=== PATIENT | male | born 1950 | race Caucasian/White ===

== ENCOUNTER 2021-11-13 11:16 | Inpatient (IN) | payer MEDICARE, OTHER, SELFPAY ==
[2021-11-13] VITALS (124 sets, daily range): BP systolic 81–170; BP diastolic 48–103; PULSE 40–86; RESP 16–34; TEMP 36.3–37; O2SAT 78–100; BMI 30.2
[2021-11-13] MEDS: midazolam 1 mg/mL INJ 2 mL 2 MG IVP ×2 (11:20→15:56)
--- NOTE | 2021-11-13 11:20 | XRR_ITS ---
PROCEDURE INFORMATION: Exam: XR Chest Exam date and time: 11/13/2021 11:33 AM Age: 71 years old Clinical indication: Device placement; Other: Ng and et placement; Additional info: Post code TECHNIQUE: Imaging protocol: Radiologic exam of the chest. Views: 1 view. COMPARISON: No relevant prior studies available. FINDINGS: Tubes, catheters and devices: NG tube extends into the subdiaphragmatic tissues the tip is not visible. Endotracheal tube is present the tip is 6.8 cm above the joel Lungs: Parenchymal densities are seen in the right upper lobe consistent with pneumonia. Low lung volumes seen. The lungs are otherwise clear Pleural spaces: Unremarkable. No pleural effusion. No pneumothorax. Heart/Mediastinum: Unremarkable. No cardiomegaly. Bones/joints: Unremarkable. XR/XR chest 1V portable [id number] IMPRESSION: 1. Right upper lobe pneumonia is present. 2. Endotracheal tube is above the joel. 3. NG tube is subdiaphragmatic
--- NOTE | 2021-11-13 11:20 | CTR_ITS ---
PROCEDURE INFORMATION: Exam: CT Head Without Contrast Exam date and time: 11/13/2021 11:59 AM Age: 71 years old Clinical indication: Other: Post code TECHNIQUE: Imaging protocol: Computed tomography of the head without contrast. Radiation optimization: All CT scans at this facility use at least one of these dose optimization techniques: automated exposure control; mA and/or kV adjustment per patient size (includes targeted exams where dose is matched to clinical indication); or iterative reconstruction. COMPARISON: No relevant prior studies available. RADIATION DOSE METRICS: Total DLP (mGy-cm): 1181.28 FINDINGS: Brain: Normal. No hemorrhage. Unremarkable white matter. No mass effect. Cerebral ventricles: No ventriculomegaly. Paranasal sinuses: Visualized sinuses are unremarkable. No fluid levels. Mastoid air cells: Visualized mastoid air cells are well aerated. Bones/joints: Unremarkable. No acute fracture. Soft tissues: Unremarkable. CT/CT head wo con* [id number] IMPRESSION: No acute intracranial abnormality.
[2021-11-13] MEDS: fentaNYL 50 mcg/mL INJ 2mL 100 MCG IVP (11:21)
--- NOTE | 2021-11-13 11:22 | ED_ITS ---
HPI - CPR General: Chief Complaint: Cardiac Arrest/CPR Stated Complaint: POST CODE Time Seen by Provider: 11/13/21 11:19 Limitations: altered mental status and physical limitation History of Present Illness: Mr. Tesfaye is a 71-year-old gentleman with unclea r past medical history presents to the emergency department post cardiac arrest. Patient was seen approximately 20 minutes prior to being found in cardiac arrest and CPR was initiated approximately 5 minutes after by first responders. Upon [facility] ambulance arrival patient was in PEA and then subsequently developed ventricular fibrillation. The patient had approximately 10 minutes of CPR prior to ROSC. He was intubated by EMS. He received 300 mg and then 150 mg of amiodarone. He received 3 x 1 mg doses of epinephrine and 3 separate push doses of epinephrine for hypotension. Additionally the patient appeared uncomfortable so he received 5 mg of Versed. Patient was not following commands however did have some eye movements and tongue movements. History is otherwise limited as the patient is intubated. Supplemental history provided by upon her arrival patient does have a history of liver cirrhosis and heart failure though had a hospitalization a number of years ago and really has not required medication treatment since. He has largely been at his baseline health though perhaps seemed a little more subdued this morning. Initial findings in the field: unresponsive, no respirations, no pulse and PEA Treatments prior to arrival: intubation, chest compressions, defibrillated shocks #, epinephrine mgs # and amiodarone Review of Systems General: Reports: ROS unobtainable due to endotracheal tube, ROS unobtainable due to medical condition and ROS unobtainable due to mental status [facility] ED PFSH: Medical History (Updated 11/13/21 @ 12:29 by Michael Gregorio MD) Family history unknown Medical history unknown Surgical History (Updated 11/13/21 @ 11:46 by Michael Gregorio MD) Surgical history unknown Physical Exam Const: GENERAL APPEARANCE: well developed, ill appearing and patient mechanically ventilated HENMT: COMMON NORMALS: normocephalic and atraumatic HEAD & SCALP: normocephalic and atraumatic OTHER: Mild amount of blood dried in the oropharynx/mouth Eye: COMMON NORMALS: conjunctivae normal CONJUNCTIVA: Yes conjunctivae normal SCLERA: sclerae normal OTHER: Pupils bilateral 2 mm nonreactive to light Neck/C-Spine: COMMON NORMALS: supple GENERAL: Yes trachea midline OTHER: C-collar in place Chest: OTHER: Chest wall deformity with ventilation likely consistent with rib fractures from CPR Resp: COMMON NORMALS: clear to auscultation bilaterally EFFORT & INSPECTION: Yes other AUSCULTATION: clear to auscultation bilaterally Cardio: COMMON NORMALS: regular rate and regular rhythm RATE: regular rate RHYTHM: regular rhythm GI: COMMON NORMALS: Soft to palpation PALPATION: Yes Soft to palpation and No Tenderness to palpation present (GI) Extremity: GENERAL: Yes normal exam except as noted and No edema Neuro: OTHER: Gag reflex appears intact, otherwise does not follow commands. Course ED course: - Patient was seen and evaluated by me at bedside - Patient placed on cardiac monitors, prehospital IV access present, additional IV access obtained - Initial evaluation notable for exam as above - Labs and xrays personally interpreted by me. EKG shows sinus rhythm with first-degree AV block and occasional PVC. Borderline interventricular conduction delay, nonspecific ST segment abnormalities. No STEMI. - Patient had abnormal movements, unclear if mild intermittent seizure type activity or simply bucking the vent. Versed and fentanyl bolus given. Propofol and fentanyl drip ordered. - Labs notable for leukocytosis, normal hemoglobin. No acute electrolyte derangement. Metabolic derangement likely secondary to lactic acidosis, creatinine elevated with unclear baseline. Mild transaminitis which may be secondary to liver cirrhosis or developing shock liver. Toxic ingestions negative. - ABG with metabolic acidosis 7.107/43.7/396. Plan to increase respiratory rate to 16 and repeat blood gas in 1 hour. Titrate down FiO2 for target SPO2 greater than 92% less than 100%. - Imaging notable for chest x-ray reviewed at bedside, ET tube approximately 6 cm from joel with satisfactory positioning. Lung sounds clear and equal bilaterally. - Upon serial reexamination after treatment the patient was similar - Based on patient history, evaluation, and testing as interpreted the most likely cause of the patient's condition is cardiac arrest of uncertain etiology. - The results of ED evaluation were discussed with the patient's family who was updated on patient condition including plan for admission due to requirement for level of care not available if discharged to prevent significant worsening/deterioration. - Admitting service was contacted and Dr Carrillo with the hospitalist service agreed to admit the patient. After discussion with hospitalist CTA ordered for evaluation of PE. I have also discussed the case with both general cardiology and interventional cardiology. Echocardiogram ordered. -Patient's heart rate and blood pressure log downtrending, given sinus nature of rhythm I will attempt 0.5 mg of atropine and observe closely for consideration of initiation of vasopressors. - Admitted to ICU in critical condition with guarded prognosis. Note: Click bubbles or prepopulated cintron in note writing are used for assistance with data collection and billing and are inherently more limited than narrative and other text portions of this note. Please use narrative for additional clinical history and defer to narrative/free test for any case of contradictory information. If information appears in only free text or click bubble it should be considered present or absent as reported. Please contact note greeting card writer for clarifications of clinical information or contradictory information. MDM is a brief summary, contradictory or erroneous seeming information should be clarified and full note should be reviewed. Vital Signs: Vital signs: Vital Signs Temperature 97.9 F 11/13/21 11:43 Pulse Rate 46 L 11/13/21 12:25 Respiratory Rate 16 11/13/21 12:25 Blood Pressure 102/59 11/13/21 12:25 Pulse Oximetry 99 11/13/21 12:25 Oxygen Delivery Me thod 11/13/21 11:43 Fraction of Inspir ed Oxygen 100 11/13/21 11:25 MDM - Cardiac Arrest/CPR Medical Decision Making 71-year-old gentleman with remote history of heart failure and liver cirrhosis not currently on medication presenting to the ER in cardiac arrest. Unwitnessed cardiac arrest with last known normal 20 minutes prior to CPR initiation though thinks it might be shorter amount of time. Initially PEA followed by VF, ROSC obtained in the field and patient intubated by EMS. Etiology of cardiac arrest somewhat uncertain. Admitted for further management. Medical Records I reviewed the patient's medical records. Lab Data I reviewed the patient's lab results. : 11/13/21 11:26 11/13/21 11:26 Radiology Impressions Chest X-Ray 11/13/21 11:20 IMPRESSION: 1. Right upper lobe pneumonia is present. 2. Endotracheal tube is above the joel. 3. NG tube is subdiaphragmatic Head CT 11/13/21 11:20 IMPRESSION: No acute intracranial abnormality. Laboratory Results WBC 12.3 10^3/uL (4.0-10.0) H 11/13/21 11:26 RBC 4.20 10^6/uL (4.1-5.3) 11/13/21 11: Hgb 13.9 g/dL (11.7-16.6) 11/13/21 11: Hct 41.4 % (42.0-52.0) L 11/13/21 11: MCV 98.6 fl (80-94) H 11/13/21 11:26 MCH 33.1 pg (28.0-34.0) 11/13/21 11: MCHC 33.6 g/dL (30.0-36.0) 11/13/21 11: RDW 13.2 % (12.1-15.1) 11/13/21 11:26 Plt Count 130 10^3/cmm (130-400) 11/13/21 11: MPV 11.7 fL (7.4-10.4) H 11/13/21 11:26 Neut % (Auto) 64.4 % 11/13/21 11:26 Lymph % (Auto) 22.8 % 11/13/21 11:26 [place] % (Auto) 5.9 % 11/13/21 11:26 Eos % (Auto) 1.4 % 11/13/21 11: Baso % (Auto) 0.5 % 11/13/21 11: Neut # (Auto) 7.92 10^3/uL (1.8-7.7) H 11/13/21 11:26 Lymph # (Auto) 2.8 10^3/uL (0.8-4.8) 11/13/21 11:26 [place] # (Auto) 0.7 10^3/uL (0.2-0.9) 11/13/21 11:26 Eos # (Auto) 0.2 10^3/uL (0.0-0.8) 11/13/21 11: Baso # (Auto) 0.1 10^3/uL (0.0-0.1) 11/13/21 11: Nucleated RBC % (auto) 0.5 % 11/13/21 11: Nucleated RBCs # 0.1 /100WBC 11/13/21 11:26 Specimen Type Arterial 11/13/21 12:35 Sample Site Radial, right 11/13/21 12:35 ABG pH 7.22 (7.35-7.45) L 11/13/21 12:35 ABG pCO2 42.3 mmHg (35-45) 11/13/21 12:35 ABG pO2 162.0 mmHg (80.0-100.0) H 11/13/21 12:35 ABG HCO3 17.4 mmol/L (22-26) L 11/13/21 12:35 ABG Base Excess -9.9 mmol/L (-2.0-2.0) L 11/13/21 12:35 Dylan Test Pos 11/13/21 12:35 Hematocrit 42.6 % (42-52) 11/13/21 12:35 O2 Delivery Device Vent 11/13/21 12:35 FiO2 80.0 % 11/13/21 12:35 Tidal Volume 0.50 11/13/21 12:35 PEEP 8.0 cmH20 11/13/21 12:35 Raw Hide Trimmer ID Hinja 11/13/21 12:35 Sodium 138 mmol/L (136-145) 11/13/21 11:26 Potassium 4.5 mmol/L (3.5-5.1) 11/13/21 11:26 Chloride 103 mmol/L (98-107) 11/13/21 11:26 Carbon Dioxide 13 mmol/L (22-29) L 11/13/21 11:26 Anion Gap 26.5 (5-19) H 11/13/21 11:26 BUN 26 mg/dL (8-23) H 11/13/21 11:26 Creatinine 1.4 mg/dL (0.7-1.2) H 11/13/21 11:26 GFR Calculation Not Reportable 11/13/21 11:26 Glucose 282 mg/dL (65-115) H 11/13/21 11:26 POC Glucose 247 mg/dL (70-110) H 11/13/21 11:29 Calculated Osmolality 301 mOsm/kg (285-295) H 11/13/21 11:26 Lactic Acid 7.8 mmol/L (0.5-2.2) H* 11/13/21 11:26 Calcium 8.1 mg/dL (8.5-10.5) L 11/13/21 11:26 Magnesium 2.1 mg/dL (1.7-2.3) 11/13/21 11:26 Total Bilirubin 0.6 mg/dL (0.15-1.2) 11/13/21 11:26 AST 63 U/L (0-40) H 11/13/21 11:26 ALT 48 U/L (0-41) H 11/13/21 11:26 Alkaline Phosphatase 91 U/L (40-130) 11/13/21 11:26 Troponin T Baseline 145 ng/L (0-15) H* 11/13/21 11:26 NT-Pro-B Natriuret Pep 2643 pg/mL (0-125) H 11/13/21 11:26 Total Protein 5.1 g/dL (6.6-8.7) L 11/13/21 11:26 Albumin 3.5 g/dL (3.5-5.2) 11/13/21 11:26 Globulin 1.6 g/dL (1.3-4.6) 11/13/21 11:26 TSH 7.76 uIU/mL (0.27-4.20) H 11/13/21 11:26 Free T4 0.79 ng/dL (0.82-1.77) L 11/13/21 11:26 Salicylates < 0.3 mg/dL (3-10) L 11/13/21 11:26 Acetaminophen < 5.0 ug/mL (10-30) L 11/13/21 11:26 Ethyl Alcohol < 10 mg/dL (0-10) 11/13/21 11:26 Critical Care Time Critical Care Time: Critical Care Time: Yes Total Critical Care Time: 60 Attestation: The high probability of a clinically significant, sudden or life threatening deterioration of the patient's cardiovascular, metabolic, and neuro system(s) required my full and direct attention, intervention and personal management. The critical care time is as shown. This time is in addition to time spent performing any reported procedures but includes the following: [x] Data and vital sign review and interpretation [x] Patient assessment, examination and intervention [x] Documentation [x] Medication orders and management Discharge Plan Discharge Patient Disposition: Admitted As Inpatient Clinical Impression: Cardiac arrest, Acute alteration in mental status, Leukocytosis, Acute non-ST elevation myocardial infarction (NSTEMI), Metabolic acidosis, Abnormal transaminases, Creatinine elevation, Elevated brain natriuretic peptide (BNP) level, Elevated TSH, Acidosis, lactic Condition: Critical Coding Level of Care Code ED Grape Pruner for Chg Fwd Exam Comprehensive
--- NOTE | 2021-11-13 11:25 | ECG_ITS ---
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 Measurements Intervals [place] Rate: 64 P: AR: QRS: -48 QRSD: 133 T: 37 QT: 451 QTc: 467 Interpretive Statements ATRIAL FIBRILLATION WITH ABERRANT CONDUCTION OR VENTRICULAR PREMATURE COMPLEXES INTRAVENTRICULAR CONDUCTION DELAY [130+ ms QRS DURATION] ARTIFACT No previous ECG available for comparison Electronically Signed On 11-16-2021 7:24:39 CDT by Jami Stanford M.D. [email or web address]/[id number] f
[2021-11-13 11:30] LABS: ABG PCO2 43.7 mmHg (35-45); Alveolar-Arterial Oxygen Gradi 33.1 mmHg (5-10); Base Excess ABG -15.4 mmol/L (-2.0-2.0); Blood Gas Allen Test Pos; Blood Gas Sample Site Radial, right; Blood Gas Sample Type Arterial; Carboxyhemoglobin 1.6 %THgb (0.4-20.1); HCO3 ABG 13.8 mmol/L (22-26); HGB O2 Sat 98.1 % (95-100); Ionized Calcium Level - ABG 1.1 mmol/L (1.1-1.4); Methemoglobin 0.7 % (0.4-1.5); Oxygen Device VENT; Oxygen Saturation ABG > 100.0; Potassium Level - ABG 4.3 mmol/L (3.5-5.0); Total Hemoglobin 14.4 g/dL (14-18)
[2021-11-13 11:32] LABS: Glucose Point of Care 247 mg/dL (70-110)
[2021-11-13 11:37] LABS: Basophils # 0.1 10^3/uL (0.0-0.1); Basophils % 0.5 %; Eosinophils # 0.2 10^3/uL (0.0-0.8); Eosinophils % 1.4 %; Hematocrit 41.4 % (42.0-52.0); Hemoglobin 13.9 g/dL (11.7-16.6); Lymphocytes # 2.8 10^3/uL (0.8-4.8); Lymphocytes % 22.8 %; Mean Corpuscular HGB Conc 33.6 g/dL (30.0-36.0); Mean Corpuscular Hemoglobin 33.1 pg (28.0-34.0); Mean Corpuscular Volume 98.6 fl (80-94); Mean Platelet Volume 11.7 fL (7.4-10.4); Monocytes # 0.7 10^3/uL (0.2-0.9); Monocytes % 5.9 %; Neutrophils # 7.92 10^3/uL (1.8-7.7); Neutrophils % 64.4 %; Nucleated Red Blood Cells # 0.1 /100WBC; Nucleated Red Blood Cells % 0.5 %; Platelet Count 130 10^3/cmm (130-400); Red Cell Distribution Width 13.2 % (12.1-15.1); White Blood Count 12.3 10^3/uL (4.0-10.0)
[2021-11-13] MEDS: propofol 1,000 MG/100 ML INJ 25.58 MG IV ×2 (11:40→19:33)
--- NOTE | 2021-11-13 11:46 | ECG_ITS ---
[facility] Test Date: 2021-11-13 Pat Name: Lm Tesfaye Department: Room: Gender: Male Rcp: : 1950 Requested By: Michael Gregorio Order Number: [id number] Liz MD: Jami Stanford M.D. Measurements Intervals [place] Rate: 66 P: 68 DE: 281 QRS: -18 QRSD: 130 T: 30 QT: 447 QTc: 471 Interpretive Statements SINUS RHYTHM WITH FIRST DEGREE AV BLOCK WITH OCCASIONAL VENTRICULAR PREMATURE COMPLEXES MODERATE INTRAVENTRICULAR CONDUCTION DELAY PROLONGED QT INTERVAL Compared to ECG 11/13/2021 11:25:07 First degree AV block now present Prolonged QT interval now present Atrial fibrillation no longer present Ventricular premature complex(es) no longer present Aberrant conduction of supraventricular beat(s) no longer present Electronically Signed On 11-15-2021 8:12:40 CDT by Jami Stanford M.D. [email or web address]/[id number] f
[2021-11-13] MEDS: sodium chloride 0.9% 1,000 ML 150 ML IV (11:50)
[2021-11-13 11:59] LABS: Alanine Aminotransferase 48 U/L (0-41); Albumin Level 3.5 g/dL (3.5-5.2); Alkaline Phosphatase 91 U/L (40-130); Blood Urea Nitrogen 26 mg/dL (8-23); Calcium 8.1 mg/dL (8.5-10.5); Carbon Dioxide 13 mmol/L (22-29); Chloride 103 mmol/L (98-107); Globulin 1.6 g/dL (1.3-4.6); Glucose 282 mg/dL (65-115); Magnesium 2.1 mg/dL (1.7-2.3); Osmolality Calculated 301 mOsm/kg (285-295); Sodium 138 mmol/L (136-145); Total Bilirubin 0.6 mg/dL (0.15-1.2); Total Protein 5.1 g/dL (6.6-8.7)
[2021-11-13 12:00] LABS: Acetaminophen < 5.0 ug/mL (10-30); Anion Gap 26.5 (5-19); Aspartate Amino Transferase 63 U/L (0-40); Potassium 4.5 mmol/L (3.5-5.1); Salicylate < 0.3 mg/dL (3-10)
[2021-11-13 12:03] LABS: Troponin(5th) Baseline 145 ng/L (0-15)
[2021-11-13 12:08] LABS: Alcohol Level < 10 mg/dL (0-10); NT Pro B Type Natriuretic Pept 2643 pg/mL (0-125); Thyroid Stimulating Hormone 7.76 uIU/mL (0.27-4.20)
[2021-11-13 12:16] LABS: Lactic Sepsis W/Reflex 7.8 mmol/L (0.5-2.2)
--- NOTE | 2021-11-13 12:32 | CTR_ITS ---
PROCEDURE INFORMATION: Exam: CTA Chest With Contrast Exam date and time: 11/13/2021 1:57 PM Age: 71 years old Clinical indication: Abdominal pain; Generalized; Chest pressure; Additional info: Post code, abnormal chest xray TECHNIQUE: Imaging protocol: Computed tomographic angiography of the chest with contrast. 3D rendering (Not supervised by radiologist): MIP and/or 3D reconstructed images were created by the technologist. Radiation optimization: All CT scans at this facility use at least one of these dose optimization techniques: automated exposure control; mA and/or kV adjustment per patient size (includes targeted exams where dose is matched to clinical indication); or iterative reconstruction. Contrast material: OMNI 350; Contrast volume: 95 ml; Contrast route: INTRAVENOUS (IV); COMPARISON: CR (CHEST, ) 11/13/2021 11:33 AM RADIATION DOSE METRICS: Total DLP (mGy-cm): 1606.86 FINDINGS: Pulmonary arteries: Normal. No pulmonary emboli. Aorta: Unremarkable. No aortic aneurysm. No aortic dissection. Lungs: Parenchymal consolidations are present in the bilateral upper lobes and in the bilateral posterior lower lobes. These findings may represent pneumonia Pleural spaces: Unremarkable. No pneumothorax. No pleural effusion. Heart: Negative for right heart strain. Heavy coronary artery calcifications. No cardiomegaly. No pericardial effusion. Lymph nodes: Unremarkable. No enlarged lymph nodes. Bones/joints: Unremarkable. No acute fracture. Soft tissues: Unremarkable. Endotracheal tube and NG tube is in place. PROCEDURE INFORMATION: Exam: CT Abdomen And Pelvis With Contrast Exam date and time: 11/13/2021 1:57 PM Age: 71 years old Clinical indication: Abdominal pain; Generalized; Chest pressure; Additional info: Post code, abnormal chest xray TECHNIQUE: Imaging protocol: Computed tomography of the abdomen and pelvis with contrast. Radiation optimization: All CT scans at this facility use at least one of these dose optimization techniques: automated exposure control; mA and/or kV adjustment per patient size (includes targeted exams where dose is matched to clinical indication); or iterative reconstruction. Contrast material: OMNI 350; Contrast volume: 95 ml; Contrast route: INTRAVENOUS (IV); COMPARISON: CR (CHEST, ) 11/13/2021 11:33 AM RADIATION DOSE METRICS: Total DLP (mGy-cm): 1606.86 FINDINGS: Liver: Normal. No mass. Gallbladder and bile ducts: There is a calcified stone No ductal dilation. Pancreas: Normal. No ductal dilation. Spleen: Normal. No splenomegaly. Adrenal glands: Normal. No mass. Kidneys and ureters: Contrast is present in the right upper kidney No hydronephrosis. Stomach and bowel: Sigmoid colon diverticulosis No obstruction. No mucosal thickening. Appendix: No evidence of appendicitis. Intraperitoneal space: Unremarkable. No free air. No significant fluid collection. Vasculature: Unremarkable. No abdominal aortic aneurysm. Lymph nodes: Unremarkable. No enlarged lymph nodes. Urinary bladder: Unremarkable as visualized. Reproductive: Unremarkable as visualized. Bones/joints: Generalized osteopenia arthritis in osteopenia seen. A Schmorl's node is present inferior endplate of the L3 vertebral body. There is no evidence of spondylolisthesis. In No acute fracture. Soft tissues: NG tube extends into the stomach CT/CT angio chest w abd pel w con IMPRESSION: 1. Negative for pulmonary embolism. 2. Bilateral pneumonia. 3. Endotracheal tube and NG tube is present 4. Negative for right heart strain IMPRESSION: No acute findings. Schmorl's node inferior endplate L3. NG tube is in the stomach or remote bone There is osteopenia and osteoarthritis of the spine
[2021-11-13 12:36] LABS: ABG PCO2 42.3 mmHg (35-45); ABG PH Result 7.22 (7.35-7.45); Arterial Blood Gas Hematocrit 42.6 % (42-52); Base Excess ABG -9.9 mmol/L (-2.0-2.0); Blood Gas Allen Test Pos; Blood Gas Sample Site Radial, right; Blood Gas Sample Type Arterial; HCO3 ABG 17.4 mmol/L (22-26); Oxygen Device VENT
--- NOTE | 2021-11-13 12:41 | USCV_ITS ---
Lm Tesfaye Age: 71 Gender: M : 1950 Exam Date: 11/13/2021 14:36 Ordering Phys: Michael Gregorio MD Technologist: Kathi Campbell Exam Location: [facility] [place] Indication: Post Code on Vent with Temp Pacer pads BP: 96 / 51 HR: 68 Rhythm: Sinus Technical Quality: Adequate MEASUREMENTS (Male / Female) Normal Values 2D ECHO LV Diastolic Diameter PLAX 5.4 cm 4.2 - 5.9 / 3.9 - 5.3 cm LV Systolic Diameter PLAX 3.2 cm LV Chamber Size 4.3 cm IVS Diastolic Thickness 0.9 cm 0.6 - 1.0 / 0.6 - 0.9 cm IVS Systolic Thickness 1.5 cm LVPW Diastolic Thickness 1.0 cm 0.6 - 1.0 / 0.6 - 0.9 cm LVPW Systolic Thickness 1.5 cm RV Chamber Size 4.2 cm LVOT Diameter 2.0 cm LV Ejection Fraction 2D Teich 70.8 % LV Ejection Fraction MOD 2C 64.8 % LV Ejection Fraction 2C AL 65.6 % LA Diameter 4.0 cm LA Width 3.9 cm LA Height 5.3 cm RA Width 4.6 cm RA Height 4.8 cm Aorta at Sinotubular Diameter 3.8 cm IVC Diameter 2.6 cm M-MODE Aortic Annulus Diameter 3.0 cm LA Ao Ratio MM 1.6 MV E Point Septal Separation 0.5 cm DOPPLER AV Peak Velocity 116.0 cm/s LVOT Peak Velocity 69.3 cm/s AV Area Cont Eq vti 2.0 cm squared AV Area Cont Eq pk 1.9 cm squared MV Area PHT 4.6 cm squared Mitral E to A Ratio 2.9 MV E' Velocity 51.0 cm/s Mitral E to MV E' Ratio 8.5 Mitral E to LV E' Lateral Ratio 8.8 Mitral E to LV E' Septal Ratio 8.2 TR Peak Velocity 164.9 cm/s TR Peak Gradient 10.9 mmHg TR Mean Velocity 105.5 cm/s TR Mean Gradient 5.4 mmHg TR Velocity Time Integral 42.2 cm TV Peak E Velocity 73.0 cm/s Right Atrial Pressure 15.0 mmHg Pulmonary Artery Systolic Pressu 25.9 mmHg PV Peak Velocity 55.0 cm/s RV Acceleration Time 0.1 s RV Ejection Time 0.3 s RV AcT/ET 0.3 FINDINGS Left Ventricle Normal left ventricular cavity size and systolic function. Increased left ventricular wall thickness. Left ventricular ejection fraction is estimated at 60 %. No diagnostic regional wall motion abnormality. Abnormal diastolic function. Right Ventricle Normal right ventricular size and systolic function. Right ventricular systolic pressure 25.9 mmHg. Right Atrium Mildly increased right atrial size. Left Atrium Moderately increased left atrial size. Mitral Valve Mild mitral annular calcification. Thickened mitral valve. No mitral valve stenosis. Moderate mitral valve regurgitation. Aortic Valve Mildly thickened trileaflet aortic valve. No aortic valve stenosis. No aortic valve regurgitation. Tricuspid Valve Structurally normal tricuspid valve. Mild tricuspid valve regurgitation. Pulmonic Valve Structurally normal pulmonic valve. Pericardium No pericardial effusion. Aorta Normal size aortic root and proximal ascending aorta. IVC Normal sized inferior vena cava. CONCLUSIONS 1. Normal left ventricular cavity size and systolic function. Increased left ventricular wall thickness. Left ventricular ejection fraction is estimated at 60 %. No diagnostic regional wall motion abnormality. Abnormal diastolic function. 2. Normal right ventricular size and systolic function 3. Moderately increased left atrial size. 4. Normal pulmonary artery pressure with pressure estimated at 26 mm Hg. 5. No prior similar studies to compare. Jami Stanford MD (Electronically Signed) Final Date: 13 November 2021 17:07 S
[2021-11-13 12:45] LABS: Free T4 Free Thyroxine 0.79 ng/dL (0.82-1.77)
[2021-11-13] MEDS: atropine 0.1 mg/mL Syr 10 mL 0.5 MG IVP (12:45)
[2021-11-13 12:47] LABS: Reflex Lactate Order REFLEX LACTIC ORDERD
--- NOTE | 2021-11-13 12:51 | PC.NURSE ---
Patients has been brought back to the room. Has answered all questions that she may have.
[2021-11-13] MEDS: sodium chloride 0.9% 1,000 ML 999 ML IV (12:57)
--- NOTE | 2021-11-13 13:02 | P.CONIM_ITS ---
Providers/Reason For Consult Consulting Physician/Specialty*: Dr. Stanford, Cardiology Reason for Consult*: PEA arrest History of Present Illness History of Present Illness Lm Tesfaye is a 71 year old male with PMHx of CHF, ?liver cirrhosis, h/o paracentesis in 2009 and former alcohol abuse. He does not usually sees a physician or take any prescription medications. He moved to the area in Dec, 2020 from [place]. History obtained from chart and patient's . Patient was apparently doing well. He was a little quiet this morning per . He was on gator at his farm for about 30 minutes. Per she had checked on about 5- 10 min prior and then she heard Gator running and found him slumped over. EMS arrived within 5 minutes and CPR was initiated. Patient was in PEA and then benites bsequently developed ventricular fibrillation.? The patient had approximately 10 minutes of CPR prior to ROSC.? He was intubated by EMS.? He received 300 mg and then 150 mg of amiodarone.? He received 3 x 1 mg doses of epinephrine and 3 separate push doses of epinephrine for hypotension. He received 5 mg of Versed.? Patient was not following commands however did have some eye movements and tongue movements. At the roxi of evaluation, he is on versed and fentanyl gtt. he also received atropine for bradycardia. EKG showed sinus rhythm with first degree AV block with occasional PVC's. IVCD. Minimal non specific ST depression. QT prolongation.? Review of Systems General: Reports: ROS unobtainable due to endotracheal tube, ROS unobtainable due to medical condition and ROS unobtainable due to mental status Medications/Allergies Home Medications Medication Instructions Recorded Confirmed Last Taken Type Cinsulin 1 cap PO DAILY 11/13/21 11/13/21 11/12/21 History ascorbic acid (vitamin C) 500 mg 500 mg PO DAILY 11/13/21 11/13/21 11/12/21 History tablet (Vitamin C) cholecalciferol (vitamin D3) 25 25 mcg PO BID 11/13/21 11/13/21 11/12/21 History mcg (1,000 unit) capsule (Vitamin D3) cranberry 400 mg capsule 400 mg PO DAILY 11/13/21 11/13/21 11/12/21 History garlic 300 mg capsule 300 mg PO DAILY 0811/13/21 11/12/21 History glucosamine sulf dipot 1 cap PO DAILY 11/13/21 11/13/21 11/12/21 History chlr,msm,chond 550 mg-C 30 mg-seb 1 mg capsule (Glucosamine Chondroitin) grape seed extract 50 mg capsule 50 mg PO DAILY 11/13/21 11/13/21 11/12/21 History (Grape Seed) ibuprofen 200 mg capsule 600 mg PO TID PRN Pain 11/13/21 11/13/21 Unknown History milk thistle 150 mg capsule 150 mg PO DAILY 11/13/21 11/13/21 11/12/21 History multivitamin 1 tab PO DAILY 11/13/21 11/13/21 11/12/21 History turmeric 400 mg capsule 400 mg PO BID 11/13/21 11/13/21 11/12/21 History vitamin B complex 1 cap PO DAILY 11/13/21 11/13/21 11/12/21 History Allergies Allergy/AdvReac Type Severity Reaction Status Date / Time No Known Allergies Allergy Verified 11/13/21 12:27 Current Medications Generic Name Dose Route Start Last Admin Trade Name Freq PRN Reason Stop Dose Admin Propofol 1,000 mg in 100 mls @ 0 mls/hr 11/13/21 11:30 11/13/21 12:56 Diprivan IV 23.45 mcg/kg/min .Q0M JOSE F 15 mls/hr Titration Protocol Per Protocol Fentanyl 2,500 mcg/ Sodium 250 mls @ 0 mls/hr 11/13/21 11:30 11/13/21 11:40 Chloride IV 5 mcg/hr .Q0M JOSE F 0.5 mls/hr Administration Protocol Per Protocol Sodium Chloride 1,000 mls @ 150 mls/hr 11/13/21 12:15 11/13/21 11:50 Sodium Chloride 0.9% IV 150 mls/hr .Q6H40M JOSE F Administration Sodium Chloride 1,000 mls @ 999 mls/hr 11/13/21 12:54 11/13/21 12:57 Sodium Chloride 0.9% IV 11/13/21 13:54 999 mls/hr .Q1H1M ONE Administration PFSH Acute PFSH: Medical History Family history unknown Medical history unknown Surgical History Surgical history unknown Vitals/I&O/Wt Last Vital Signs Temp 97.9 F 11/13/21 11:43 Pulse 65 11/13/21 12:50 Resp 16 11/13/21 12:50 BP 81/50 11/13/21 12:50 Pulse Ox 99 11/13/21 12:40 O2 Del Method 11/13/21 11:43 FiO2 100 11/13/21 11:25 11/12/21 11/13/21 11/13/21 22:59 06:59 14:59 Intake Total 30.951 / 30.951 Balance 30.951 / 30.951 Weight last 48 hrs Weight 235 lb Physical Exam Narrative: GENERAL: obese man intubated and sedated HEENT: No pallor or icterus. NECK: No carotid bruit. CARDIOVASCULAR SYSTEM: S1-S2 regular. No murmur or gallops. RESPIRATORY SYSTEM: coarse b/l breath sounds. No wheezes rhonchi or rubs heard. ABDOMEN: Soft, nontender and nondistended. Normal bowel sounds present. EXTREMITIES: No cyanosis or edema. CREATIVE COORDINATOR: Patient is intubated and sedated Urinary Catheter Management: Phan: Cath Placed During This Visit: yes Urinary Catheter Date of Insertion: 11/13/21 Urinary Catheter Time of Insertion: 12:00 Data : 11/13/21 11:26 11/13/21 11:26 Micro: Microbiology 11/13/21 12:16 Blood Culture - Preliminary Blood SPECIMEN COLLECTED 11/13/21 12:11 Blood Culture - Preliminary Blood SPECIMEN COLLECTED A&P Assessment and plan (1) Cardiac arrest: PEA arrest; downtime ~15-20 min -CTA chest pending -GCS < 6 on arrival; therapeutic hypothermia is recommended for 48 hours. -EKG with no ST elevation -No arrhythmia's since arrival. recieved amiodarone 450 mg IV total. recommend starting on amiodarone gtt with any recurrence of arrhythmia. Status: Acute (2) Acute non-ST elevation myocardial infarction (NSTEMI): Troponin T 145-> 435 -recommend starting on therapeutic anticoagulation with heparin -plan for echo -decision for C based on clinical progression. Status: Acute (3) Abnormal transaminases: Status: Acute (4) Creatinine elevation: Status: Acute Plan Elevated lactate Metabolic acidosis Thank you for allowing me to participate in patient's care. Please feel free to call with questions or concerns. Consult Attestations Time Spent in Patient Care: Greater than 35 minutes Coding Level of Care Code Acute Restaurant Team Member for Leslie Donovan Diagnoses Cardiac arrest I46.9 Acute non-ST elevation myocardial infarction (NSTEMI) I21.4 Abnormal transaminases R74.8 Creatinine elevation R79.89
[2021-11-13] MEDS: iohexol 350 mg/mL 100 mL Btl IV (14:03)
[2021-11-13 14:31] LABS: ABG PH Result 7.11 (7.35-7.45)
[2021-11-13 14:44] LABS: Urine Appearance Cloudy (CLEAR); Urine Color Yellow (Yellow)
[2021-11-13 14:45] LABS: Add Urine Microscopic? YES; Bilirubin Urine Neg (Negative); Blood Urine 3+ (Negative); Glucose Urine UA Norm (Normal); Ketones Urine 1+ (Negative); Leukocyte Esterase Urine Negative (Negative); Nitrate Urine Negative (Negative); Protein Urine 3+ (Negative); Specific Gravity, Urine 1.015 (1.005-1.030); Urobilinogen Urine Norm (Negative); pH Urine 6 (5-7)
[2021-11-13 14:48] LABS: RBC Urine 25-40 /hpf (0-2)
[2021-11-13 14:49] LABS: Bacteria Urine 3+ /hpf
[2021-11-13 14:50] LABS: Amorphous Sediment Urine 2+ /hpf; Sperm Urine 1+ /hpf
[2021-11-13 14:51] LABS: Add Urine Culture? Yes
[2021-11-13] MEDS: FUROsemide 10 mg/mL SDV 2mL 20 MG IVP (15:03)
[2021-11-13] MEDS: propofol 1,000 MG/100 ML INJ 28.78 MG IV (15:15)
[2021-11-13 15:25] LABS: Troponin 5 2HR 435.3 ng/L (0-15); Troponin 5 2HR Delta 290.3 ABS# (0-10)
[2021-11-13] MEDS: piperacillin-tazobactam 3.375 GM in sodium chloride 0.9% (plus) 50 ML IV (16:00)
--- NOTE | 2021-11-13 16:38 | PM.HP ---
Providers/Chief Complaint Admitting Physician: Gaby Carrillo MD Chief Complaint: POST CODE History of Present Illness Lm Tesfaye is a 71 year old male who carries history of liver cirrhosis related to alcohol abuse, has had paracentesis in the past, history of cardiomyopathy however no previous history of coronary disease CHF or AK, no other surgical history other than hernia repair presented to the hospital via EMS after cardiac arrest in the field. 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, and he went outside in the field, he was on his gator, she had to get a running for quite some time and thought to check on him when she found him slumped in the gator, the gatorr was in park gear, EMS was called, they arrived after the site within 7 minutes, diagnosed him with PEA, started chest compressions, intubated him, he received amiodarone 2 doses, 3 doses of epinephrine, he was also given atropine ROSC was obtained after 10 minutes, In the ER he was on propofol and fentanyl showing upper extremity movement, as per the his pupils responded as soon as ROSC was obtained otherwise they were dilated before EMS was called, no meaningful recovery was noted after ROSC was obtained, I have requested ICU nurse to start TTM protocol, requested ER physician to touch base with bed control specialist, get stat echo and CTA chest there are no signs of tension pneumothorax, clinically looks slightly fluid overloaded with pitting edema of lower extremities Currently he is on fentanyl 100 and propofol 15, I have requested ER physician to give him antibiotics and low-dose Lasix He has high BNP, stat echo and CTA chest requested EKG showing first-degree AV block with sinus rhythm with QTC prolongation, potassium and mag level requested Review of Systems General: Reports: ROS unobtainable due to endotracheal tube and ROS unobtainable due to medical condition Medications/Allergies Home Medications Medication Instructions Recorded Confirmed Last Taken Type Cinsulin 1 cap PO DAILY 11/13/21 11/13/21 11/12/21 History ascorbic acid (vitamin C) 500 mg 500 mg PO DAILY 11/13/21 11/13/21 11/12/21 History tablet (Vitamin C) cholecalciferol (vitamin D3) 25 25 mcg PO BID 11/13/21 11/13/21 11/12/21 History mcg (1,000 unit) capsule (Vitamin D3) cranberry 400 mg capsule 400 mg PO DAILY 11/13/21 11/13/21 11/12/21 History garlic 300 mg capsule 300 mg PO DAILY 11/13/21 11/13/21 11/12/21 History glucosamine sulf dipot 1 cap PO DAILY 11/13/21 11/13/21 11/12/21 History chlr,msm,chond 550 mg-C 30 mg-seb 1 mg capsule (Glucosamine Chondroitin) grape seed extract 50 mg capsule 50 mg PO DAILY 11/13/21 11/13/21 11/12/21 History (Grape Seed) ibuprofen 200 mg capsule 600 mg PO TID PRN Pain 11/13/21 11/13/21 Unknown History milk thistle 150 mg capsule 150 mg PO DAILY 11/13/21 11/13/21 11/12/21 History multivitamin 1 tab PO DAILY 11/13/21 11/13/21 11/12/21 History turmeric 400 mg capsule 400 mg PO BID 11/13/21 11/13/21 11/12/21 History vitamin B complex 1 cap PO DAILY 11/13/21 11/13/21 11/12/21 History Allergies Allergy/AdvReac Type Severity Reaction Status Date / Time No Known Allergies Allergy Verified 11/13/21 12:27 PFSH Acute PFSH: Medical History Family history unknown Medical history unknown Surgical History Surgical history unknown Vitals/I&O/Wt Last Vital Signs Temp 97.9 F 11/13/21 11:43 Pulse 79 11/13/21 16:10 Resp 23 H 11/13/21 16:10 BP 160/93 11/13/21 16:10 Pulse Ox 100 11/13/21 16:05 O2 Del Method 11/13/21 11:43 FiO2 70 11/13/21 14:29 11/13/21 11/13/21 11/13/21 06:59 14:59 22:59 Intake Total 1032.818 / 4328.567 3445.795 / 2077.613 Balance 1032.818 / 5214.612 8955.795 / 2077.613 Weight last 48 hrs Weight 106.594 kg Physical Exam Narrative: Patient is intubated and sedated Showing upper extremity nonpurposeful movements Endotracheal tube size 8 with by 23 cm Lower extremity 1+ pitting edema Abdomen soft Bilateral assisted breath sounds Pupils are not reactive to light Bile noted in NG tube Phan catheter in place Neuro exam is limited I could hear bilateral breath sounds, Urinary Catheter Management: Phan: Cath Placed During This Visit: yes Urinary Catheter Date of Insertion: 11/13/21 Urinary Catheter Time of Insertion: 12:00 Data : 11/14/21 03:32 11/14/21 03:32 Micro: Microbiology 11/13/21 12:16 Blood Culture - Preliminary Blood SPECIMEN COLLECTED 11/13/21 12:11 Blood Culture - Preliminary Blood SPECIMEN COLLECTED A&P Assessment and plan (1) Cardiac arrest: Status: Acute (2) Acute alteration in mental status: Status: Acute (3) Leukocytosis: Status: Acute (4) Acute non-ST elevation myocardial infarction (NSTEMI): Status: Acute (5) Metabolic acidosis: Status: Acute (6) Abnormal transaminases: Status: Acute (7) Creatinine elevation: Status: Acute (8) Elevated brain natriuretic peptide (BNP) level: Status: Acute (9) Elevated TSH: Status: Acute (10) Acidosis, lactic: Status: Acute (11) PEA (Pulseless electrical activity): Status: Acute Plan Cardiac arrest in the field PEA ROSC obtained after 10 minutes, there was 7-minute delay before EMS arrived No previous history of AK, coronary disease however history of CHF as per the Does not take any Lasix at home He recently used weed spray on his field No family history of sudden cardiac arrest EKG showing sinus rhythm first-degree AV block NSTEMI with troponin leakage Stat echo, cardiac consult CTA chest requested ROSC obtained after 10 minutes no neurological recovery noted Start TTM Will recommend 24 hours of hypothermic protocol I will write hypothermia protocol in a free text to the nurse History of liver cirrhosis Cardiomyopathy Anoxic brain injury? CT head unremarkable Myxoedema coma Hypothyroidism Star IV levothyroxine 300mg bolus and then 50mg IVP daily High anion gap metabolic acidosis due to above-mentioned reasons Mild signs of CHF exacerbation Not a candidate of fluid bolus I will give him IV Lasix for now Echo requested Aspiration pneumonia versus community-acquired Start broad-spectrum antibiotics DuoNeb every 4 as needed Protonix 40 mg IV twice daily Mechanical ventilation status post cardiac arrest Full code N.p.o. Attestations Medical Necessity Statement*: Greater than 2 midnights anticipated , Time Spent in Patient Care: 45mins Critical Care Time: 45min Coding Level of Care Code Acute Ic Design Manager for Leslie Fwbeena Diagnoses Cardiac arrest I46.9 Acute alteration in mental status R41.82 Leukocytosis D72.829 Acute non-ST elevation myocardial infarction (NSTEMI) I21.4 Metabolic acidosis E87.2 Abnormal transaminases R74.8 Creatinine elevation R79.89 Elevated brain natriuretic peptide (BNP) level R79.89 Elevated TSH R79.89 Acidosis, lactic E87.2 PEA (Pulseless electrical activity) I46.9
--- NOTE | 2021-11-13 17:20 | USR_ITS ---
PROCEDURE INFORMATION: Exam: US Duplex Lower Extremity Veins, Bilateral Exam date and time: 11/13/2021 5:58 PM Age: 71 years old Clinical indication: Edema, localized; Lower extremity, bilateral; Additional info: Dvt TECHNIQUE: Imaging protocol: Real-time Duplex ultrasound of the bilateral extremities with 2-D lambert scale, color Doppler flow and spectral waveform analysis with image documentation. Complete exam focused on the bilateral lower extremity veins. COMPARISON: CT angio chest w abd pel w con 11/13/2021 1:57 PM FINDINGS: Right deep veins: Unremarkable. The common femoral, femoral, proximal profunda femoral and popliteal veins are patent without thrombus. Normal Doppler waveforms. Normal compressibility and/or augmentation response. Right superficial veins: Saphenofemoral junction is patent without thrombus. Left deep veins: Unremarkable. The common femoral, femoral, proximal profunda femoral and popliteal veins are patent without thrombus. Normal Doppler waveforms. Normal compressibility and/or augmentation response. Left superficial veins: Saphenofemoral junction is patent without thrombus. Soft tissues: Unremarkable. US/CV venous duplex [facility] [address] IMPRESSION: No evidence of deep vein thrombosis.
--- NOTE | 2021-11-13 17:21 | ECG_ITS ---
[facility] Test Date: 2021-11-13 Pat Name: Lm Tesfaye Department: Room: ICU10 Gender: Male [place] Operator: : 1950 Requested By: Michael Gregorio Order Number: [id number] Liz MD: Jami Stanford M.D. Measurements Intervals Aragon Rate: 76 P: 90 WY: 281 QRS: -7 QRSD: 124 T: -19 QT: 447 QTc: 503 Interpretive Statements SINUS RHYTHM WITH FIRST DEGREE AV BLOCK WITH OCCASIONAL VENTRICULAR PREMATURE COMPLEXES POSSIBLE RIGHT VENTRICULAR CONDUCTION DELAY [RSR (QR) IN V1/V2] INFERIOR MYOCARDIAL INFARCTION , OF INDETERMINATE AGE [40+ ms Q WAVE AND/OR ST/T ABNORMALITY IN II/aVF] Compared to ECG 11/13/2021 11:46:44 Ventricular premature complex(es) now present Myocardial infarct finding now present Intraventricular conduction delay no longer present Prolonged QT interval no longer present Electronically Signed On 11-15-2021 8:11:25 CDT by Jami Stanford M.D. [email or web address]
--- NOTE | 2021-11-13 18:12 | PC.PHAR ---
Vancomycin is dosed at 1000mg IVPB every 12 hours to produce a predicted trough level of 16.67 (population based pharmacokinetic analysis). A trough level has been ordered from the lab to be obtained before the fourth dose to confirm and adjust if needed. The Zosyn dosage is adjusted to 3.375gm IVPB every 8 hours on the basis of the creeatinine clearance of 70.85.
[2021-11-13] MEDS: enoxaparin 100 mg/mL Syringe SUBCUT (18:47)
[2021-11-13] MEDS: levothyroxine 100 mcg SDV 300 MCG IVP (18:47)
[2021-11-13] MEDS: pantoprazole 40 mg SDV IVP (18:48)
[2021-11-13] MEDS: FUROsemide 10 mg/mL SDV 10mL 60 MG IVP (18:58)
--- NOTE | 2021-11-13 18:59 | PC.NURSE ---
recieved from er prior unresponsive on vent had i/o left shoulder leaking , removed and site right wrist infiltrate removed new sites left wrist and left hand goood return .. post code protocal ordered for cooling ect. beehive kiln supervisor called also unable to perform no rectal monitor for cooling blanket , temp 97.9 ax at this time Doctor notified of above, any touch noted to have clonic seizures noted doctor called and order for keppra noted pupil pinpoint heart monitor sr
[2021-11-13 19:27] LABS: Lactate (Lactic Acid level) 3.7 mmol/L (0.5-2.2)
[2021-11-13 19:33] LABS: Alanine Aminotransferase 55 U/L (0-41); Albumin Level 3.8 g/dL (3.5-5.2); Alkaline Phosphatase 76 U/L (40-130); Anion Gap 19.6 (5-19); Aspartate Amino Transferase 81 U/L (0-40); Blood Urea Nitrogen 29 mg/dL (8-23); Calcium 7.8 mg/dL (8.5-10.5); Carbon Dioxide 19 mmol/L (22-29); Chloride 104 mmol/L (98-107); Globulin 1.3 g/dL (1.3-4.6); Glucose 193 mg/dL (65-115); Osmolality Calculated 297 mOsm/kg (285-295); Potassium 4.6 mmol/L (3.5-5.1); Sodium 138 mmol/L (136-145); Total Bilirubin 1.1 mg/dL (0.15-1.2); Total Protein 5.1 g/dL (6.6-8.7)
[2021-11-13 19:34] LABS: INR 1.49 (0.8-1.2)
[2021-11-13 19:35] LABS: Partial Thromboplastin Time 31.2 SECONDS (23.9-36.7)
[2021-11-13 19:36] LABS: Fibrinogen 189 mg/dL (174-498)
--- NOTE | 2021-11-13 19:52 | PC.NURSE ---
Received call from family friend Doyle Herrera (phone number [phone])-they found property video of pt having tonic clonic seizure activity at 1009, found him at 1015 and contacted EMS. It is reported that the video is saved and will be available for review.
[2021-11-13 19:53] LABS: D Dimer >= 20.00 ug/mIFEU (0-0.59)
[2021-11-13 19:58] LABS: Troponin 5 6HR 1079 ng/L (0-15); Troponin 5 6HR Delta 934 ng/L (0-12)
[2021-11-13] MEDS: atorvastatin 40 mg Tablet 80 MG PO (20:56)
--- NOTE | 2021-11-13 22:41 | PC.NURSE ---
Dr. Faustin notified of change in pt resp status. Order received to start Nimbex gtt to titrate per protocol.
[2021-11-13 22:49] LABS: Adenovirus Not Detected (NOT DETECT); Chlamydia Pneumoniae Not Detected (NOT DETECT); Coronavirus 229E,HKU1,NL63,OC4 Not Detected (NOT DETECT); Human Metapneumovirus Not Detected (NOT DETECT); Human Rhinovirus/Enterovirus Not Detected (NOT DETECT); Influenza A Not Detected (NOT DETECT); Influenza A H1 Not Detected (NOT DETECT); Influenza A H1-2009 Not Detected (NOT DETECT); Influenza A H3 Not Detected (NOT DETECT); Influenza B Not Detected (NOT DETECT); Mycoplasma Pneumoniae Not Detected (NOT DETECT); Parainfluenza Virus Type 1 Not Detected (NOT DETECT); Parainfluenza Virus Type 2 Not Detected (NOT DETECT); Parainfluenza Virus Type 3 Not Detected (NOT DETECT); Parainfluenza Virus Type 4 Not Detected (NOT DETECT); Respiratory Syncytial Virus A Not Detected (NOT DETECT); Respiratory Syncytial Virus B Not Detected (NOT DETECT); SARS-COV-2 Not Detected (NOT DETECT)
[2021-11-13] MEDS: cisatracurium 100 MG in sodium chloride 0.9% 50 ML IV (23:08)
[2021-11-13] MEDS: propofol 1,000 MG/100 ML INJ 19.19 MG IV (23:09)
--- NOTE | 2021-11-13 23:12 | PC.NURSE ---
BIS monitor attached to pt, baseline reading shows adequate sedation level, TOF currently giving twitch at 3, Nimbex gtt started at 0.3mcg to be titrated per protocol.
--- NOTE | 2021-11-13 23:56 | PC.NURSE ---
Call made to [facility] to start file for pt.
[2021-11-14] VITALS (126 sets, daily range): BP systolic 82–138; BP diastolic 45–75; PULSE 54–72; RESP 16–22; TEMP 36.9–37.1; O2SAT 88–98
[2021-11-14] MEDS: vancomycin 1,000 MG in sodium chloride 0.9% 250 ML 250 MG IV (02:01)
[2021-11-14 04:04] LABS: Basophils % 0.2 %; Hemoglobin 13.1 g/dL (11.7-16.6); Lymphocytes # 0.4 10^3/uL (0.8-4.8); Lymphocytes % 3.4 %; Mean Corpuscular HGB Conc 33.6 g/dL (30.0-36.0); Mean Corpuscular Hemoglobin 32.8 pg (28.0-34.0); Mean Corpuscular Volume 97.5 fl (80-94); Mean Platelet Volume 11.6 fL (7.4-10.4); Monocytes # 0.6 10^3/uL (0.2-0.9); Monocytes % 5.4 %; Neutrophils # 10.67 10^3/uL (1.8-7.7); Neutrophils % 90.6 %; Nucleated Red Blood Cells % 0 %; Platelet Count 116 10^3/cmm (130-400); Red Cell Distribution Width 13.8 % (12.1-15.1); White Blood Count 11.8 10^3/uL (4.0-10.0)
[2021-11-14 04:29] LABS: Anion Gap 20.8 (5-19); Blood Urea Nitrogen 38 mg/dL (8-23); Calcium 7.6 mg/dL (8.5-10.5); Carbon Dioxide 17 mmol/L (22-29); Chloride 108 mmol/L (98-107); Glucose 171 mg/dL (65-115); Magnesium 1.7 mg/dL (1.7-2.3); Osmolality Calculated 303 mOsm/kg (285-295); Phosphorus 4.4 mg/dL (2.5-4.5); Potassium 5.8 mmol/L (3.5-5.1); Sodium 140 mmol/L (136-145)
[2021-11-14] MEDS: propofol 1,000 MG/100 ML INJ 15.99 MG IV (05:36)
[2021-11-14 05:43] LABS: ABG PCO2 33.5 mmHg (35-45); ABG PH Result 7.31 (7.35-7.45); Arterial Blood Gas Hematocrit 41.4 % (42-52); Base Excess ABG -8.2 mmol/L (-2.0-2.0); Blood Gas Allen Test Pos; Blood Gas Sample Site Radial, right; Blood Gas Sample Type Arterial; Oxygen Device VENT; PO2 ABG 73.3 mmHg (80.0-100.0)
[2021-11-14] MEDS: FUROsemide 10 mg/mL SDV 10mL 60 MG IVP ×2 (06:02→19:33)
[2021-11-14] MEDS: enoxaparin 100 mg/mL Syringe SUBCUT (06:02)
[2021-11-14] MEDS: aspirin 81 mg EC Tablet PO (09:11)
[2021-11-14] MEDS: levothyroxine 100 mcg SDV 50 MCG IVP (09:11)
[2021-11-14] MEDS: piperacillin-tazobactam 3.375 GM in sodium chloride 0.9% (plus) 50 ML IV ×2 (09:12→18:02)
[2021-11-14] MEDS: pantoprazole 40 mg SDV IVP ×2 (09:12→17:13)
[2021-11-14 09:32] LABS: Lactate (Lactic Acid level) 1.2 mmol/L (0.5-2.2)
[2021-11-14] MEDS: sodium bicarbonate 150 MEQ in dextrose 5% 1,000 ML 100 MEQ IV ×2 (09:55→21:06)
--- NOTE | 2021-11-14 10:04 | PM.PN ---
Subjective Subjective: Overnight no cooling was initiated. He got Keppra and paralytics and versed for seizures. Medications: Reviewed: Yes Vitals/I&O/Wt Last Vital Signs Temp 98.6 F 11/14/21 07:00 Pulse 71 11/14/21 09:00 Resp 18 11/14/21 08:09 BP 127/67 11/14/21 09:00 Pulse Ox 92 11/14/21 09:00 O2 Del Method 11/13/21 16:30 FiO2 60 11/14/21 08:09 11/13/21 11/14/21 11/14/21 22:59 06:59 14:59 Intake Total 1284.428 / 2317.246 150.435 / 2467.681 299.1 / 299.1 Output Total 800 / 800 Balance 1284.428 / 2317.246 -649.565 / 1667.681 299.1 / 299.1 Weight last 48 hrs Weight 235 lb Weight 235 lb Physical Exam Narrative: GENERAL: obese man intubated and sedated HEENT: No pallor or icterus. NECK: No carotid bruit. CARDIOVASCULAR SYSTEM: S1-S2 regular. No murmur or gallops. RESPIRATORY SYSTEM: coarse b/l breath sounds. No wheezes rhonchi or rubs heard. ABDOMEN: Soft, nontender and nondistended. Normal bowel sounds present. EXTREMITIES: No cyanosis , trace edema. INFORMATION SYSTEMS SECURITY OFFICER: Patient is intubated and sedated Urinary Catheter Management: Phan: Cath Placed During This Visit: yes Reason for Continuing Indwelling Catheter: Accurate Measurement of Urinary Output in Critically Ill Patients Urinary Catheter Date of Insertion: 11/13/21 Urinary Catheter Time of Insertion: 12:00 Data : 11/14/21 03:32 11/14/21 03:32 Micro: Microbiology 11/13/21 14:15 Urine Culture - Preliminary Urine,Clean Catch 11/13/21 20:45 Legionella Urinary Antigen - Final Urine Catheterized 11/13/21 12:16 Blood Culture - Preliminary Blood SPECIMEN COLLECTED 11/13/21 12:11 Blood Culture - Preliminary Blood SPECIMEN COLLECTED A&P Assessment and plan (1) Cardiac arrest: PEA arrest; downtime ~15-20 min -CTA chest with no PE. B/L infiltrates -GCS < 6 on arrival; therapeutic hypothermia is recommended for 48 hours. -EKG with no ST elevation -No arrhythmia's since arrival. recieved amiodarone 450 mg IV total. recommend starting on amiodarone gtt with any recurrence of arrhythmia. Status: Acute (2) Acute non-ST elevation myocardial infarction (NSTEMI): Troponin T 145-> 435-->1079 -on lovenox, normal LV function on echo -decision for C based on clinical progression/neurological status. Status: Acute (3) Abnormal transaminases: Status: Acute (4) Creatinine elevation: Status: Acute Plan Anoxic brain injury Elevated lactate Metabolic acidosis Mildly elevated TSH Thank you for allowing me to participate in patient's care. Please feel free to call with questions or concerns. Attestations Medical Necessity Statement*: remains critically ill, guarded prognosis Coding Level of Care Code Acute Apron Cleaner for Leslie Donovan Diagnoses Cardiac arrest I46.9 Acute non-ST elevation myocardial infarction (NSTEMI) I21.4 Abnormal transaminases R74.8 Creatinine elevation R79.89
--- NOTE | 2021-11-14 10:39 | PC.NURSE ---
family at bedside talked with doctor at length about status started versed at this time continues to have seizures even with paralytic .. aware of poor prognosis and overall outlook will hold any further cpr if pt arrests.. oral care done and total bath done small bm noted at this time ... eyes deviate downward and flicking pupils nonreactive
[2021-11-14] MEDS: propofol 1,000 MG/100 ML INJ 19.19 MG IV ×2 (11:57→23:25)
--- NOTE | 2021-11-14 13:06 | PC.NURSE ---
less seizure activity noted more comfortable at this time no pupil response noted at this time hob elevated . heart monitor remains sr . urine output slightly increased
[2021-11-14 15:24] LABS: Vancomycin Trough 20.1 ug/mL (10-15)
--- NOTE | 2021-11-14 15:42 | P.PN_ITS ---
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, around 10 AM he suddenly parked and slumped over to his right side and started shaking for about 2 minutes, his checked on him and called EMS, EMS arrived after 7 minutes There was a delay of about 10 minutes before CPR was started As per the she did not notice any signs of vomiting in the gator, she noticed frothing and mild drooling from his face She also showed me the picture of weed killer that he was using, he did not use mask or wore gloves It found some articles regarding glyphosate toxicity which can cause airway compromise, cardiovascular collapse toxicity Vitals/I&O/Wt Last Vital Signs Temp 98.8 F 11/14/21 15:00 Pulse 62 11/14/21 15:00 Resp 18 11/14/21 15:00 BP 120/70 11/14/21 15:00 Pulse Ox 98 11/14/21 15:00 O2 Del Method 11/13/21 16:30 FiO2 60 11/14/21 15:00 11/14/21 11/14/21 11/14/21 06:59 14:59 22:59 Intake Total 150.435 / 2467.681 712.169 / 712.169 Output Total 800 / 800 800 / 800 Balance -649.565 / 1667.681 -87.831 / -87.831 Weight last 48 hrs Weight 106.594 kg Weight 106.594 kg Physical Exam Narrative: Patient is intubated and sedated Nonpurposeful movement of upper extremities, jerking movement Eyes are twitching and vertical axis Assisted bilateral breath sounds Crackles positive Edema of lower extremities Abdomen distended soft No signs of ulcers Currently patient is on paralytics and sedatives Requiring Levophed Urinary Catheter Management: Phan: Cath Placed During This Visit: yes Reason for Continuing Indwelling Catheter: Accurate Measurement of Urinary Output in Critically Ill Patients Urinary Catheter Date of Insertion: 11/13/21 Urinary Catheter Time of Insertion: 12:00 Data : 11/14/21 03:32 11/14/21 03:32 Micro: Microbiology 11/13/21 20:45 Bacterial Antigens - Final Urine,Clean Catch 11/13/21 20:45 MRSA Culture - Final Nose 11/13/21 12:16 Blood Culture - Preliminary Blood NEGATIVE TO DATE 11/13/21 12:11 Blood Culture - Preliminary Blood NEGATIVE TO DATE 11/13/21 14:15 Urine Culture - Preliminary Urine,Clean Catch 11/13/21 20:45 Legionella Urinary Antigen - Final Urine Catheterized A&P Assessment and plan (1) PEA (Pulseless electrical activity): Status: Acute (2) Cardiac arrest: Status: Acute (3) Acute alteration in mental status: Status: Acute (4) Leukocytosis: Status: Acute (5) Acute non-ST elevation myocardial infarction (NSTEMI): Status: Acute (6) Metabolic acidosis: Status: Acute (7) Abnormal transaminases: Status: Acute (8) Creatinine elevation: Status: Acute (9) Elevated brain natriuretic peptide (BNP) level: Status: Acute (10) Elevated TSH: Status: Acute (11) Acidosis, lactic: Status: Acute Plan Cardiac arrest outside the hospital We could not arrange rectal probe, TTM could not be initiated yesterday Lactic acid is improved Creatinine has worsened Negative fluid balance Patient is not oliguric Afebrile No severe leukocytosis worsening Currently on broad-spectrum antibiotics Concern for anoxic brain injury Patient's eyes were showing twitching and vertical axis HIs twitching improved after initiation of Versed today Currently on propofol, fentanyl, Versed and Nimbex. Echo did not show wall motion abnormality, preserved ejection fraction No signs of PE, no sign of tension pneumothorax or cardiac tamponade I do not see any signs of malignant arrhythmia, holding off on amiodarone drip, appreciate cardio recommendations, in case we see any nonsustained V. tach or malignant arrhythmia signs low threshold to start amio drip Right now he is getting NSTEMI/ACS treatment Keppra added for seizures Hypothyroidism/myxedema coma Continue steroids We will do low-dose levothyroxine ATN after cardiac arrest Hyperkalemia, will give Kayexalate and insulin We will switch Lovenox to once daily because of worsening of creatinine Nonoliguric Switch antibiotics to cefepime and Zosyn, MRSA PCR negative Telemetry showed type II AV block overnight however hemodynamically stable Currently heart rate is in 60s Hypocalcemia: We will give calcium gluconate Metabolic acidosis related to lactic acidemia: Improved Will turn on bicarb drip by this evening, repeat CBC, CMP 5 PM Patient seems to have seizure which is evident on the video that that showed us Because of seizure is unknown I did find literature that would support glyphosate poisoning that can cause cardiovascular collapse along with respiratory compromise however mostly toxicity/poisoning is seen with ingestion of herbicide which is not the case, he does not need dialysis for now Guarded prognosis, will repeat CT head tomorrow Will also request EEG Multiple family meetings conducted today All questions were answered I did share an article of herbicide poisoning with his , I did tell her about my suspicion related to myxedema coma, she does understand that prognosis is poor Attestations Medical Necessity Statement*: Continue ICU management Time Spent in Patient Care: 40 Coding Level of Care Code Acute [employer] for [facility] Donovan Diagnoses PEA (Pulseless electrical activity) I46.9 Cardiac arrest I46.9 Acute alteration in mental status R41.82 Leukocytosis D72.829 Acute non-ST elevation myocardial infarction (NSTEMI) I21.4 Metabolic acidosis E87.2 Abnormal transaminases R74.8 Creatinine elevation R79.89 Elevated brain natriuretic peptide (BNP) level R79.89 Elevated TSH R79.89 Acidosis, lactic E87.2
[2021-11-14] MEDS: cefepime 1,000 MG in sodium chloride 0.9% (plus) 50 ML 100 MG IV (17:14)
[2021-11-14] MEDS: dextrose 50% syringe 50 mL 25 ML IVP (17:32)
[2021-11-14] MEDS: insulin regular-human 10 UNIT in SYRINGE 1 EACH 100 UNIT IVP (17:33)
[2021-11-14] MEDS: calcium gluconate 0.9% NaCL 1 GM/50 ML PREMIX IV ×2 (18:06→18:24)
[2021-11-14 18:44] LABS: Glucose Point of Care 125 mg/dL (70-110)
[2021-11-14 18:53] LABS: Basophils % 0.1 %; Hematocrit 34.2 % (42.0-52.0); Hemoglobin 11.9 g/dL (11.7-16.6); Lymphocytes # 0.6 10^3/uL (0.8-4.8); Lymphocytes % 5.3 %; Mean Corpuscular HGB Conc 34.8 g/dL (30.0-36.0); Mean Corpuscular Hemoglobin 33.1 pg (28.0-34.0); Mean Platelet Volume 11.3 fL (7.4-10.4); Monocytes # 0.8 10^3/uL (0.2-0.9); Neutrophils # 9.85 10^3/uL (1.8-7.7); Neutrophils % 87.1 %; Nucleated Red Blood Cells % 0 %; Platelet Count 101 10^3/cmm (130-400); Red Cell Distribution Width 13.3 % (12.1-15.1); White Blood Count 11.3 10^3/uL (4.0-10.0)
[2021-11-14 19:18] LABS: Alanine Aminotransferase 41 U/L (0-41); Albumin Level 3.2 g/dL (3.5-5.2); Alkaline Phosphatase 60 U/L (40-130); Anion Gap 19.7 (5-19); Aspartate Amino Transferase 59 U/L (0-40); Blood Urea Nitrogen 47 mg/dL (8-23); Calcium 8.4 mg/dL (8.5-10.5); Carbon Dioxide 18 mmol/L (22-29); Chloride 105 mmol/L (98-107); Globulin 1.6 g/dL (1.3-4.6); Glucose 128 mg/dL (65-115); Osmolality Calculated 302 mOsm/kg (285-295); Potassium 3.7 mmol/L (3.5-5.1); Sodium 139 mmol/L (136-145); Total Bilirubin 0.7 mg/dL (0.15-1.2); Total Protein 4.8 g/dL (6.6-8.7)
[2021-11-14 19:26] LABS: Prolactin 43.07 ng/mL (4.0-15.2)
[2021-11-14] MEDS: atorvastatin 40 mg Tablet 80 MG PO (20:44)
[2021-11-15] VITALS (105 sets, daily range): BP systolic 94–168; BP diastolic 54–94; PULSE 38–72; RESP 18; TEMP 35.5–36.4; O2SAT 9–100
[2021-11-15] MEDS: piperacillin-tazobactam 3.375 GM in sodium chloride 0.9% (plus) 50 ML IV ×2 (01:19→10:55)
--- NOTE | 2021-11-15 04:00 | CTR_ITS ---
PROCEDURE INFORMATION: Exam: CT Head Without Contrast Exam date and time: 11/15/2021 4:27 AM Age: 71 years old Clinical indication: Other: Anoxic TECHNIQUE: Imaging protocol: Computed tomography of the head without contrast. Radiation optimization: All CT scans at this facility use at least one of these dose optimization techniques: automated exposure control; mA and/or kV adjustment per patient size (includes targeted exams where dose is matched to clinical indication); or iterative reconstruction. COMPARISON: CT head wo con* [id number] 11/13/2021 11:59 AM RADIATION DOSE METRICS: Total DLP (mGy-cm): 1188.28 FINDINGS: Brain: No acute intracranial hemorrhage or mass effect. There is very mild decreased attenuation in the periventricular white matter, likely from microvascular disease. No definite acute infarct by CT. MRI could be more sensitive/specific for detection of acute infarcts and acute anoxic injury, as clinically directed. Cerebral ventricles: Ventricle size is normal for age. Paranasal sinuses: Moderate amount of fluid in the left aspect of the sphenoid sinus. Minimal ethmoid sinus mucosal thickening. Included paranasal sinuses otherwise appear essentially clear. Mastoid air cells: No significant acute finding. Bones/joints: No definite acute skull fracture. Soft tissues: No significant acute finding. CT/CT head wo con* [id number] IMPRESSION: 1. No acute intracranial hemorrhage or mass effect. 2. No definite acute infarct by CT, see above discussion. 3. Other findings discussed above.
[2021-11-15 04:37] LABS: Basophils % 0.1 %; Hematocrit 32.3 % (42.0-52.0); Hemoglobin 11.2 g/dL (11.7-16.6); Lymphocytes # 0.5 10^3/uL (0.8-4.8); Lymphocytes % 4.5 %; Mean Corpuscular HGB Conc 34.7 g/dL (30.0-36.0); Mean Corpuscular Hemoglobin 32.7 pg (28.0-34.0); Mean Corpuscular Volume 94.4 fl (80-94); Mean Platelet Volume 11.7 fL (7.4-10.4); Monocytes # 0.6 10^3/uL (0.2-0.9); Neutrophils # 9.98 10^3/uL (1.8-7.7); Neutrophils % 89.9 %; Nucleated Red Blood Cells % 0 %; Platelet Count 104 10^3/cmm (130-400); Red Blood Count 3.42 10^6/uL (4.1-5.3); Red Cell Distribution Width 13.4 % (12.1-15.1); White Blood Count 11.1 10^3/uL (4.0-10.0)
[2021-11-15] MEDS: propofol 1,000 MG/100 ML INJ 19.19 MG IV ×2 (04:53→07:00)
[2021-11-15 05:09] LABS: Alanine Aminotransferase 37 U/L (0-41); Alkaline Phosphatase 59 U/L (40-130); Anion Gap 18.9 (5-19); Aspartate Amino Transferase 60 U/L (0-40); Blood Urea Nitrogen 53 mg/dL (8-23); Calcium 7.8 mg/dL (8.5-10.5); Carbon Dioxide 21 mmol/L (22-29); Chloride 101 mmol/L (98-107); Globulin 1.6 g/dL (1.3-4.6); Glucose 186 mg/dL (65-115); Osmolality Calculated 303 mOsm/kg (285-295); Potassium 3.9 mmol/L (3.5-5.1); Sodium 137 mmol/L (136-145); Total Bilirubin 0.8 mg/dL (0.15-1.2); Total Protein 4.6 g/dL (6.6-8.7)
[2021-11-15] MEDS: FUROsemide 10 mg/mL SDV 10mL 60 MG IVP (06:17)
[2021-11-15 06:48] LABS: ABG PCO2 31.4 mmHg (35-45); ABG PH Result 7.45 (7.35-7.45); Base Excess ABG -1.5 mmol/L (-2.0-2.0); Blood Gas Allen Test Pos; Blood Gas Sample Site Radial, right; Blood Gas Sample Type Arterial; HCO3 ABG 21.8 mmol/L (22-26); Oxygen Device VENT; PO2 ABG 94.7 mmHg (80.0-100.0)
[2021-11-15 07:37] LABS: Glucose Point of Care 178 mg/dL (70-110)
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
[2021-11-15] MEDS: sodium bicarbonate 150 MEQ in dextrose 5% 1,000 ML 100 MEQ IV (08:59)
[2021-11-15] MEDS: pantoprazole 40 mg SDV IVP ×2 (09:29→18:52)
[2021-11-15] MEDS: aspirin 81 mg EC Tablet PO (09:29)
[2021-11-15] MEDS: levothyroxine 100 mcg SDV 50 MCG IVP (09:29)
[2021-11-15] MEDS: enoxaparin 100 mg/mL Syringe SUBCUT (09:36)
--- NOTE | 2021-11-15 10:02 | PC.NURSE ---
2852 Dr. Carrillo at bedside, ask me to give 0.5mg atropine, obtained from crash cart and gave IV as ordered. Heart rate in mid 40's,
[2021-11-15] MEDS: propofol 1,000 MG/100 ML INJ 11.51 MG IV (10:31)
--- NOTE | 2021-11-15 11:10 | PC.NURSE ---
Propofol and Fentanyl drips have been titrated down for EEG procedure at approximatley 1130 today. Vitals remain steady with justin episodes.
[2021-11-15 12:53] LABS: Glucose Point of Care 194 mg/dL (70-110)
--- NOTE | 2021-11-15 13:42 | PM.PN ---
Subjective Subjective: CT head report reviewed No severe leukocytosis Afebrile Small drop in platelets noted ABG reviewed FiO2 50% PEEP 6 Creatinine worsened to 3 Positive fluid balance Pulm critical consult placed Dr. Sheffield was notified regarding significant bradycardia related to type II second-degree AV block Plan to taper off Versed, turn off Nimbex, sedation vacation, sepsis mental/neurological status No active seizures Lasix, bicarb drip to be discontinued today Doses discontinued, Keppra dose was decreased by Dr. Anna Prolactin 43 Vitals/I&O/Wt Last Vital Signs Temp 97.6 F 11/15/21 12:15 Pulse 48 L 11/15/21 12:15 Resp 18 11/15/21 13:29 BP 111/62 11/15/21 12:15 Pulse Ox 95 11/15/21 13:29 O2 Del Method 11/15/21 07:50 FiO2 40 11/15/21 13:29 11/14/21 11/15/21 11/15/21 22:59 06:59 14:59 Intake Total 1575.024 / 2287.193 350 / 2637.193 1652.295 / 1652.295 Output Total 800 / 1600 800 / 2400 300 / 300 Balance 775.024 / 687.193 -450 / 640.023 2566.295 / 1352.295 Weight last 48 hrs Weight 106.594 kg Physical Exam Narrative: Patient is on mechanical ventilator Intubated and sedated and paralyzed Abdomen soft Bilateral assisted breath sounds 2+ pitting edema of lower extremities No abnormal eye twitching/movement Pupils are not reactive S1, S2 sinus bradycardia Urinary Catheter Management: Phan: Cath Placed During This Visit: yes Reason for Continuing Indwelling Catheter: Accurate Measurement of Urinary Output in Critically Ill Patients Urinary Catheter Date of Insertion: 11/13/21 Urinary Catheter Time of Insertion: 12:00 Data : 11/15/21 03:58 11/15/21 03:58 Micro: Microbiology 11/13/21 14:15 Urine Culture - Final Urine,Clean Catch 11/13/21 20:45 Bacterial Antigens - Final Urine,Clean Catch 11/13/21 20:45 MRSA Culture - Final Nose 11/13/21 12:16 Blood Culture - Preliminary Blood NEGATIVE TO DATE 11/13/21 12:11 Blood Culture - Preliminary Blood NEGATIVE TO DATE A&P Assessment and plan (1) PEA (Pulseless electrical activity): Status: Acute (2) Cardiac arrest: Status: Acute (3) Acute alteration in mental status: Status: Acute (4) Leukocytosis: Status: Acute (5) Acute non-ST elevation myocardial infarction (NSTEMI): Status: Acute (6) Metabolic acidosis: Status: Acute (7) Abnormal transaminases: Status: Acute (8) Creatinine elevation: Status: Acute (9) Elevated TSH: Status: Acute (10) Elevated brain natriuretic peptide (BNP) level: Status: Acute (11) Acidosis, lactic: Status: Acute Plan PEA, cardiac arrest prehospital Respiratory failure requiring mechanical ventilation postcardiac arrest Significant increase of troponin Likely etiology is malignant arrhythmia No indication for amiodarone for now TTM could not be initiated Patient was showing signs of tremors yesterday Tremors improved with use of Versed Today Versed to be titrated off, Nimbex turned off Sedation vacation Assessment mentation/neurological status CT head report reviewed EEG requested No malignant arrhythmia however patient is showing signs of second-degree high degree AV block, I have updated Dr. Stanford He was given 1 dose of atropine as well His blood pressure has remained stable Potassium 3.9, magnesium to be checked Echo showed preserved ejection fraction Patient still getting therapeutic Lovenox however because of worsening of creatinine I might have to switch him to heparin NG to suction, gastric residuals 300ml Myxedema coma Seizure cause unknown Low T4 high TSH He got loading dose of the IV levothyroxine on day of admission, currently on low-dose IV levothyroxine That can also contribute to cardiovascular collapse and bradycardia ATN nonoliguric Monitor kidney function Anoxic brain injury to be ruled out EEG today Calcium repleted Bilateral infiltrates on lung imaging Patient does seem to be in decompensated diastolic heart failure he does have lower extremity edema which could be due to hypothyroidism as well, no signs of DVT No signs of congestive heart failure Preserve ejection fraction No wall motion abnormality Currently FiO2 50% PEEP 6 We will follow-up with pulm/critical recommendations Diastolic congestive heart failure acute exacerbation Due to recent cardiac arrest Preserve ejection fraction No wall motion abnormality History of alcohol induced cardiomyopathy as per the He received Lasix in last 48 hours, Dr. 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
[2021-11-15 15:17] LABS: Urine Creatinine 98 mg/dL (39-259); Urine Random Chloride 32 mmol/L; Urine Random Sodium 26 mmol/L
[2021-11-15 15:22] LABS: Creatinine Urine, Random 99 mg/dL (39-259); Microalbumin Random Urine 8 ug/dL (0-20)
--- NOTE | 2021-11-15 15:23 | PC.NURSE ---
Patient remains on 50mg/fentanyl. Patient has opened eyes in response to pain and auditory stimuli. Pupils are now sluggish but reactive to light. Patient was able to wiggle toes but not hands. Spouse remains at bedside.
[2021-11-15 15:31] LABS: Microalbum Creatinine Ratio Ur 81 mg/dL (0-20)
[2021-11-15 15:40] LABS: Urine Random Potassium 60 mmol/L
[2021-11-15 15:41] LABS: Eosinophil Urine No Eosinophils Seen; Urine Eosinophil Count 0 (0-0)
[2021-11-15 16:05] LABS: Glucose Point of Care 174 mg/dL (70-110)
--- NOTE | 2021-11-15 17:08 | PM.PN ---
Subjective Subjective: patient is being taken off sedation to assess neurological status. Bradycardia on telemetry with intermittent 2:1 AV block HR was in 30's an received 1 dose of atropine Medications: Reviewed: Yes Vitals/I&O/Wt Last Vital Signs Temp 97.6 F 11/15/21 16:00 Pulse 49 L 11/15/21 16:23 Resp 18 11/15/21 16:10 BP 132/74 11/15/21 16:00 Pulse Ox 97 11/15/21 16:10 O2 Del Method 11/15/21 07:50 FiO2 35 11/15/21 16:10 11/15/21 11/15/21 11/15/21 06:59 14:59 22:59 Intake Total 350 / 2637.193 2231.879 / 2231.879 Output Total 800 / 2400 300 / 300 Balance -450 / 075.616 6588.879 / 1931.879 Physical Exam Narrative: GENERAL: obese man intubated and sedated HEENT: No pallor or icterus. NECK: No carotid bruit. CARDIOVASCULAR SYSTEM: S1-S2 regular. No murmur or gallops. RESPIRATORY SYSTEM: coarse b/l breath sounds. No wheezes rhonchi or rubs heard. ABDOMEN: Soft, nontender and nondistended. Normal bowel sounds present. EXTREMITIES: No cyanosis , trace edema. 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: Patient is intubated and sedated Urinary Catheter Management: Phan: Cath Placed During This Visit: yes Reason for Continuing Indwelling Catheter: Accurate Measurement of Urinary Output in Critically Ill Patients Urinary Catheter Date of Insertion: 11/13/21 Urinary Catheter Time of Insertion: 12:00 Data : 11/16/21 04:25 11/16/21 04:25 Micro: Microbiology 11/15/21 10:10 Gram Stain - Final Sputum - Endotracheal Tube Aspirate 11/13/21 14:15 Urine Culture - Final Urine,Clean Catch 11/13/21 20:45 Bacterial Antigens - Final Urine,Clean Catch 11/13/21 20:45 MRSA Culture - Final Nose 11/13/21 12:16 Blood Culture - Preliminary Blood NEGATIVE TO DATE 11/13/21 12:11 Blood Culture - Preliminary Blood NEGATIVE TO DATE A&P Assessment and plan (1) Cardiac arrest: PEA arrest; downtime ~20 min -CTA chest with no PE. B/L infiltrates -GCS < 6 on arrival; therapeutic hypothermia is recommended for 48 hours. -EKG with no ST elevation -f/b V fib during code per documentation. - received amiodarone 450 mg IV total. No recurrence of ventricular tac/VF. Status: Acute (2) Acute non-ST elevation myocardial infarction (NSTEMI): Troponin T 145-> 435-->1079 -on lovenox, normal LV function on echo -decision for [facility] based on clinical progression/neurological status. Status: Acute (3) Abnormal transaminases: Status: Acute (4) Creatinine elevation: Status: Acute Plan Bradycardia with intermittent 2:1 AV block: atropine as needed Anoxic brain injury Elevated lactate Metabolic acidosis Mildly elevated TSH VDRF post code Thank you for allowing me to participate in patient's care. Please feel free to call with questions or concerns. Attestations Medical Necessity Statement*: As per primary team Coding Level of Care Code Acute Merchandise Flow Team Leader for Leslie Donovan Diagnoses Cardiac arrest I46.9 Acute non-ST elevation myocardial infarction (NSTEMI) I21.4 Abnormal transaminases R74.8 Creatinine elevation R79.89
[2021-11-15 17:20] LABS: Estmated Average Glucose 97
--- NOTE | 2021-11-15 17:54 | ECG_ITS ---
[facility] Test Date: 2021-11-15 Pat Name: Lm Tesfaye Department: Room: ICU10 Gender: Male Order Entry: : [id number] Requested By: Jami Stanford Order Number: [id number] Liz MD: Jami Stanford M.D. Measurements Intervals [place] Rate: 60 P: 87 MN: 237 QRS: -10 QRSD: 109 T: -65 QT: 507 QTc: 507 Interpretive Statements SINUS RHYTHM WITH FIRST DEGREE AV BLOCK WITH OCCASIONAL VENTRICULAR PREMATURE COMPLEXES ST DEVIATION AND MODERATE T-WAVE ABNORMALITY, CONSIDER LATERAL ISCHEMIA ST DEVIATION AND MODERATE T-WAVE ABNORMALITY, CONSIDER INFERIOR ISCHEMIA Compared to ECG 11/13/2021 16:53:28 T-wave abnormality now present Possible ischemia now present Sinus rhythm no longer present First degree AV block no longer present Myocardial infarct finding no longer present Electronically Signed On 11-16-2021 7:29:24 CDT by Jami Stanford M.D. [id number]
--- NOTE | 2021-11-15 17:57 | PM.ACPR ---
Procedure/Consent Procedure Narrative: ORDERING PHYSICIAN: Gaby Carrillo REASON FOR STUDY: Post anoxic. STUDY: This was a 21 channel digital electroencephalogram performed using the 10-20 international system of electrode placement. This study was performed at the bedside in ICU. FINDINGS: This record appears to be filled with artifact. There is constant bifrontotemporal 8 Hz spike artifact that appears far to rhythmic to be physiologic. There is little variation in the appearance of the spike activity. In the posterior aspect of the head there is a reflection from the anterior artifact IMPRESSION: Excessive bifrontal artifact of unclear source. This does not appear to be seizure activity but is more consistent with an electrical artifact. None of the activity seen on this EEG appears to be brain generated. Duration of EE minutes
[2021-11-15] MEDS: cefepime 1,000 MG in sodium chloride 0.9% (plus) 50 ML 100 MG IV (18:48)
[2021-11-15 20:16] LABS: Glucose Point of Care 147 mg/dL (70-110)
[2021-11-15] MEDS: atorvastatin 40 mg Tablet 80 MG PO (21:44)
[2021-11-15] MEDS: insulin glargine 100 units/1 mL 10 UNIT SUBCUT (21:44)
--- NOTE | 2021-11-15 22:03 | XRR_ITS ---
PROCEDURE INFORMATION: Exam: XR Abdomen Exam date and time: 11/15/2021 10:32 PM Age: 71 years old Clinical indication: Other: Hypoxia TECHNIQUE: Imaging protocol: Radiologic exam of the abdomen. Views: Frontal supine view of the abdomen. 1 View. COMPARISON: CT angio chest w abd pel w con 11/13/2021 1:57 PM FINDINGS: Gastrointestinal tract: Normal. No bowel dilation. Bones/joints: Unremarkable. XR/XR KUB portable [id number] IMPRESSION: No acute findings.
--- NOTE | 2021-11-15 22:03 | XRR_ITS ---
PROCEDURE INFORMATION: Exam: XR Chest Exam date and time: 11/15/2021 10:22 PM Age: 71 years old Clinical indication: Other: Hypoxia TECHNIQUE: Imaging protocol: Radiologic exam of the chest. Views: 1 view. COMPARISON: CR (CHEST, ) 11/13/2021 11:33 AM FINDINGS: Tubes, catheters and devices: Enteric tube tip is over the body of the stomach (mid stomach). Probable stable endotracheal tube tip over the mid trachea, 3 cm proximal to the joel. Lungs: Interval appearance of moderate left basilar atelectasis and/or infiltrate and/or effusion. Possible left mucous plug with possible interval complete collapse of the left lower lobe. Pleural spaces: Unremarkable. No pleural effusion. No pneumothorax. Heart/Mediastinum: Unremarkable. No cardiomegaly. Bones/joints: Unremarkable. XR/XR chest 1V portable [id number] IMPRESSION: 1. Interval appearance of moderate left basilar atelectasis and/or infiltrate and/or effusion. 2. Probable left mucous plug with probable interval complete collapse of the left lower lobe with shift of the heart to the left. 3. Enteric tube tip is over the body of the stomach (mid stomach). 4. Probable stable endotracheal tube tip over the mid trachea, 3 cm proximal to the joel.
--- NOTE | 2021-11-15 22:05 | ECG_ITS ---
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
[2021-11-15 22:55] LABS: Basophils % 0.2 %; Hematocrit 33.5 % (42.0-52.0); Hemoglobin 11.5 g/dL (11.7-16.6); Lymphocytes # 0.3 10^3/uL (0.8-4.8); Lymphocytes % 4.9 %; Mean Corpuscular HGB Conc 34.3 g/dL (30.0-36.0); Mean Platelet Volume 11.9 fL (7.4-10.4); Monocytes # 0.3 10^3/uL (0.2-0.9); Neutrophils # 5.68 10^3/uL (1.8-7.7); Neutrophils % 89.1 %; Nucleated Red Blood Cells % 0 %; Platelet Count 76 10^3/cmm (130-400); Red Blood Count 3.49 10^6/uL (4.1-5.3); Red Cell Distribution Width 13.5 % (12.1-15.1); White Blood Count 6.4 10^3/uL (4.0-10.0)
[2021-11-15 23:06] LABS: Lactate (Lactic Acid level) 2.6 mmol/L (0.5-2.2)
[2021-11-15 23:08] LABS: Alanine Aminotransferase 43 U/L (0-41); Alkaline Phosphatase 55 U/L (40-130); Aspartate Amino Transferase 99 U/L (0-40); Blood Urea Nitrogen 62 mg/dL (8-23); Calcium 7.6 mg/dL (8.5-10.5); Carbon Dioxide 24 mmol/L (22-29); Chloride 99 mmol/L (98-107); Glucose 146 mg/dL (65-115); Osmolality Calculated 308 mOsm/kg (285-295); Sodium 139 mmol/L (136-145); Total Bilirubin 1.1 mg/dL (0.15-1.2)
--- NOTE | 2021-11-15 23:13 | XRR_ITS ---
PROCEDURE INFORMATION: Exam: XR Chest Exam date and time: 11/15/2021 11:46 PM Age: 71 years old Clinical indication: Other: Hypoxia TECHNIQUE: Imaging protocol: Radiologic exam of the chest. Views: 1 view. COMPARISON: CR XR chest 1V portable [id number] 11/15/2021 10:22 PM FINDINGS: Tubes, catheters and devices: Endotracheal tube tip over the mid trachea, 4 cm proximal to the joel. Stable enteric tube. Lungs: Slight decreased left basilar opacity with possible slight increased aeration of the left lung. Probable continued significant residual left lower lung field atelectasis and/or infiltrate and/or effusion with shift of the heart to the left. Pleural spaces: Unremarkable. No pleural effusion. No pneumothorax. Heart/Mediastinum: See Lungs finding. Bones/joints: Unremarkable. XR/XR chest 1V portable [id number] IMPRESSION: 1. Endotracheal tube tip over the mid trachea, 4 cm proximal to the jeol. 2. Slight decreased left basilar opacity with possible slight increased aeration of the left lung. 3. Probable continued significant residual left lower lung field atelectasis and/or infiltrate and/or effusion with shift of the heart to the left.
[2021-11-15] MEDS: acetylcysteine 200 mg/mL SDV 4 mL 100 MG INHALATION (23:19)
[2021-11-15 23:26] LABS: ABG PCO2 35.9 mmHg (35-45); ABG PH Result 7.43 (7.35-7.45); Arterial Blood Gas Hematocrit 34.8 % (42-52); Base Excess ABG -0.2 mmol/L (-2.0-2.0); Blood Gas Allen Test Pos; Blood Gas Sample Site Radial, right; Blood Gas Sample Type Arterial; HCO3 ABG 23.9 mmol/L (22-26); Oxygen Device VENT; PO2 ABG 52.4 mmHg (80.0-100.0)
[2021-11-15 23:27] LABS: Troponin T (5th) Once 413 ng/L (0-15)
[2021-11-15 23:30] LABS: C Reactive Protein 64.6 mg/L (0.0-4.9)
[2021-11-15 23:38] LABS: Procalcitonin 3.62 ng/mL (0-0.5)
[2021-11-15] MEDS: FUROsemide 10 mg/mL SDV 4mL 40 MG IVP (23:53)
[2021-11-16] VITALS (86 sets, daily range): BP systolic 108–179; BP diastolic 57–102; PULSE 44–98; RESP 10–28; TEMP 36.6–37.4; O2SAT 88–100
--- NOTE | 2021-11-16 00:08 | PC.PHAR ---
Pharmacokinetic dosing service Date: 11/16/21 Time: 8 Objective: Patient: Lm Plascencia Floor: ICU-10 Age: 71 yo Serum creatinine: 3.5 mg/dL Height: 74.0 Inches Weight (kg): 106.594 Diagnosis: Relevant medical/social history: Cultures and sensitivities: Other labs: Assessment: IBW (kg): 82.20 Dosing wt(kg): 106.594 Estimated Creatinine clearance (ml/min): 21.9 CRCL method: Cockcroft and Gault using ibw(default). Drug selected: Vancomycin Loading dose (mg): 0 Vd (liters): 95.9 (factor used: 0.9 L/kg) Shemar (hr-1): 0.023 Half life (hrs): 30.14 Recommended dose: 1500 mg Interval: 36 hrs Infusion time (hrs): 1.5 Predicted peak (mcg/mL): 27.3 Predicted trough (mcg/mL): 12.35 Total body weight is being used for vancomycin dosing. Renal function is stable [ ] /unstable [ ] Recommendations: Give Vancomycin 1500 mg q 36 hrs with an expected Cpeak of 27.3 mcg/ml and an expected Ctrough of 12.35 mcg/ml Renal dosing of other antibiotics (review renal dosing of other medications and list guidelines here): Thank you for the consult, will continue to follow. Signature: Nina Shepherd [facility]
[2021-11-16] MEDS: vancomycin 1,500 MG/300 ML PIGGYBACK 166.67 MG IV (02:09)
[2021-11-16] MEDS: acetylcysteine 200 mg/mL SDV 4 mL 100 MG INHALATION ×5 (03:11→20:20)
[2021-11-16 04:51] LABS: Hematocrit 30.2 % (42.0-52.0); Hemoglobin 10.4 g/dL (11.7-16.6); Lymphocytes # 0.3 10^3/uL (0.8-4.8); Lymphocytes % 6.7 %; Mean Corpuscular HGB Conc 34.4 g/dL (30.0-36.0); Mean Corpuscular Hemoglobin 33.2 pg (28.0-34.0); Mean Corpuscular Volume 96.5 fl (80-94); Mean Platelet Volume 11.6 fL (7.4-10.4); Monocytes # 0.3 10^3/uL (0.2-0.9); Monocytes % 5.5 %; Neutrophils # 4.13 10^3/uL (1.8-7.7); Nucleated Red Blood Cells % 0 %; Platelet Count 68 10^3/cmm (130-400); Red Blood Count 3.13 10^6/uL (4.1-5.3); Red Cell Distribution Width 13.3 % (12.1-15.1); White Blood Count 4.8 10^3/uL (4.0-10.0)
[2021-11-16 05:08] LABS: Lactate (Lactic Acid level) 2.4 mmol/L (0.5-2.2)
[2021-11-16 05:09] LABS: Alanine Aminotransferase 43 U/L (0-41); Alkaline Phosphatase 55 U/L (40-130); Anion Gap 19.9 (5-19); Aspartate Amino Transferase 104 U/L (0-40); Blood Urea Nitrogen 68 mg/dL (8-23); Calcium 7.4 mg/dL (8.5-10.5); Carbon Dioxide 24 mmol/L (22-29); Chloride 97 mmol/L (98-107); Creatinine Clr Calc Pharmacy 25.1681; Globulin 1.3 g/dL (1.3-4.6); Glucose 148 mg/dL (65-115); Osmolality Calculated 307 mOsm/kg (285-295); Potassium 3.9 mmol/L (3.5-5.1); Sodium 137 mmol/L (136-145); Total Bilirubin 0.8 mg/dL (0.15-1.2); Total Protein 4.3 g/dL (6.6-8.7)
[2021-11-16 05:57] LABS: ABG PCO2 28.9 mmHg (35-45); ABG PH Result 7.48 (7.35-7.45); Arterial Blood Gas Hematocrit 32.2 % (42-52); Base Excess ABG -1.2 mmol/L (-2.0-2.0); Blood Gas Allen Test Pos; Blood Gas Sample Site Radial, right; Blood Gas Sample Type Arterial; HCO3 ABG 21.6 mmol/L (22-26); Oxygen Device VENT; PO2 ABG 68.8 mmHg (80.0-100.0)
[2021-11-16] MEDS: sodium chloride 3.5% neb 4 mL Neb INHALATION ×2 (08:14→20:21)
[2021-11-16] MEDS: ipratropium-albuterol 3 mL Neb INHALATION ×4 (08:14→20:21)
[2021-11-16] MEDS: FUROsemide 10 mg/mL SDV 4mL 40 MG IVP (10:00)
[2021-11-16] MEDS: pantoprazole 40 mg SDV IVP ×2 (10:01→17:02)
[2021-11-16] MEDS: levothyroxine 100 mcg SDV 50 MCG IVP (10:01)
[2021-11-16 10:27] LABS: LAB Peripheral Smear Sent for Review
--- NOTE | 2021-11-16 11:48 | PM.PN ---
Subjective Subjective: EEG with no active seizures. No events on telemetry. HR has improved UO 2.4L yesterday, remains LOS +4.1L; received lasix 80 mg IV x 1, UO 925 ml Medications: Reviewed: Yes Vitals/I&O/Wt Last Vital Signs Temp 98.6 F 11/16/21 10:00 Pulse 68 11/16/21 10:00 Resp 13 11/16/21 10:14 BP 163/83 11/16/21 10:00 Pulse Ox 93 11/16/21 10:14 O2 Del Method 11/16/21 10:00 O2 Flow Rate 35 11/15/21 23:20 FiO2 40 11/16/21 10:14 11/15/21 11/16/21 11/16/21 22:59 06:59 14:59 Intake Total 229.292 / 2461.171 300 / 2761.171 364.292 / 364.292 Output Total 275 / 575 350 / 925 Balance -45.708 / 1886.171 -50 / 1836.171 364.292 / 364.292 Physical Exam Narrative: GENERAL: obese man intubated and sedated HEENT: No pallor or icterus. NECK: No carotid bruit. CARDIOVASCULAR SYSTEM: S1-S2 regular. No murmur or gallops. RESPIRATORY SYSTEM: coarse b/l breath sounds. No wheezes rhonchi or rubs heard. ABDOMEN: Soft, nontender and nondistended. Normal bowel sounds present. EXTREMITIES: No cyanosis , trace edema. 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 B/L infiltrates -GCS < 6 on arrival; therapeutic hypothermia is recommended for 48 hours. -EKG with no ST elevation -f/b V fib during code per documentation. - No recurrence of ventricular tac/VF. Status: Acute (2) Acute non-ST elevation myocardial infarction (NSTEMI): Troponin T 145-> 435-->1079-->413 -on lovenox, normal LV function on echo -decision for [facility] based on clinical progression/neurological status. Status: Acute (3) Abnormal transaminases: Status: Acute (4) Creatinine elevation: BUN/creatinine 62/3.5-->68/3.4 Status: Acute Plan Bradycardia with intermittent 2:1 AV block: atropine as needed Anoxic brain injury: plan for CT head in morning Metabolic acidosis: resolved Mildly elevated TSH VDRF post code Thank you for allowing me to participate in patient's care. Please feel free to call with questions or concerns. Attestations Medical Necessity Statement*: As per primary team Time Spent in Patient Care: 16 - 35 minutes Coding Level of Care Code Acute Welt Slasher for Leslie Donovan Diagnoses Cardiac arrest I46.9 Acute non-ST elevation myocardial infarction (NSTEMI) I21.4 Abnormal transaminases R74.8 Creatinine elevation R79.89
--- NOTE | 2021-11-16 11:57 | PM.PN ---
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 Anna recommended addition of vancomycin because of positive sputum culture with gram-positive cocci Patient has remained afebrile Lactic acid 2.4 Creatinine 3.4 Patient was given 80 mg of Lasix 525 mL urine output Nasogastric drainage about 100 mL at the time of my evaluation Patient was on fentanyl 50 Asked nurse to titrate off fentanyl and reevaluate if patient is waking up, Patient has positive gag reflex Will add Mucomyst, chest visit therapy Scopolamine patch Sedation vacation Will repeat CT head tomorrow morning EEG did not show active seizures Vitals/I&O/Wt Last Vital Signs Temp 98.6 F 11/16/21 10:00 Pulse 68 11/16/21 10:00 Resp 13 11/16/21 10:14 BP 163/83 11/16/21 10:00 Pulse Ox 93 11/16/21 10:14 O2 Del Method 11/16/21 10:00 O2 Flow Rate 35 11/15/21 23:20 FiO2 40 11/16/21 10:14 11/15/21 11/16/21 11/16/21 22:59 06:59 14:59 Intake Total 229.292 / 2461.171 300 / 2761.171 364.292 / 364.292 Output Total 275 / 575 350 / 925 Balance -45.708 / 1886.171 -50 / 1836.171 364.292 / 364.292 Physical Exam Narrative: Patient looks volume overloaded Positive fluid balance Decreased urine output Nonoliguric Bilateral breath sounds with rhonchi and crackles Edema of legs Heart rate low 60s Blood pressure is stable FiO2 40% PEEP 6 Neuro exam limited Pupils are nonresponsive Patient did not show any response to sternal rub or verbal stimuli Urinary Catheter Management: Phan: Cath Placed During This Visit: yes Reason for Continuing Indwelling Catheter: Accurate Measurement of Urinary Output in Critically Ill Patients Urinary Catheter Date of Insertion: 11/13/21 Urinary Catheter Time of Insertion: 12:00 Data : 11/16/21 04:25 11/16/21 04:25 Micro: Microbiology 11/15/21 10:10 Gram Stain - Final Sputum - Endotracheal Tube Aspirate 11/13/21 14:15 Urine Culture - Final Urine,Clean Catch A&P Assessment and plan (1) PEA (Pulseless electrical activity): Status: Acute (2) Cardiac arrest: Status: Acute (3) Acute alteration in mental status: Status: Acute (4) Leukocytosis: Status: Acute (5) Acute non-ST elevation myocardial infarction (NSTEMI): Status: Acute (6) Metabolic acidosis: Status: Acute (7) Abnormal transaminases: Status: Acute (8) Creatinine elevation: Status: Acute (9) Elevated brain natriuretic peptide (BNP) level: Status: Acute (10) Elevated TSH: Status: Acute (11) Acidosis, lactic: Status: Acute (12) ATN (acute tubular necrosis): Status: Acute (13) Mucus plug in respiratory tract: Status: Acute (14) Thrombocytopenia: Status: Acute Plan Cardiac arrest prehospital PEA V. fib TTM not able to be completed in the hospital because of lack of rectal probe No malignant arrhythmia noted during hospitalization 2:1 AV block intermittent NSTEMI Lovenox changed to once daily regimen because of worsening creatinine Echo showed preserved ejection fraction with global hypokinesia No plan for angiogram as of yet Cardiology on board Appreciate their recommendations Mucous plug Hypoxia overnight Vancomycin has been very added because of gram-positive cocci in sputum Currently on cefepime and vancomycin Mucomyst, and acetylcysteine Scopolamine patch Currently on 40% FiO2, PEEP 6 Recurrent hypoxia Mucous plug Pulm edema Pneumonia Patient has received 80 mg of Lasix today Patient is at positive fluid balance We will keep him on IV Lasix on daily regimen ATN Related to cardiac arrest Creatinine plateaued Patient is not oliguric, urine output 525 overnight He has received 80 mg of Lasix today Urine output to be monitored on an hourly basis today Patient is not acidotic anymore Lactic acidemia likely related to hypoxic events overnight Hypothyroidism, myxedema coma Currently on IV levothyroxine along steroids Taper down steroid dose Seizures EEG unremarkable Currently on Keppra Prognosis seems poor Positive gag reflex however no meaningful neurological recovery noted yet Repeat CT head without contrast tomorrow For bronchoscopy today by Dr. Anna Attestations Medical Necessity Statement*: Continue ICU management Critical Care Time: 20 Coding Level of Care Code Acute Block Feeder for [facility] Fwd Diagnoses PEA (Pulseless electrical activity) I46.9 Cardiac arrest I46.9 Acute alteration in mental status R41.82 Leukocytosis D72.829 Acute non-ST elevation myocardial infarction (NSTEMI) I21.4 Metabolic acidosis E87.2 Abnormal transaminases R74.8 Creatinine elevation R79.89 Elevated brain natriuretic peptide (BNP) level R79.89 Elevated TSH R79.89 Acidosis, lactic E87.2 ATN (acute tubular necrosis) N17.0 Mucus plug in respiratory tract T17.998A Thrombocytopenia D69.6
[2021-11-16 12:34] LABS: Glucose Point of Care 144 mg/dL (70-110)
[2021-11-16] MEDS: scopolamine 1.5 Patch 1 PATCH TRANSDERMA (12:34)
--- NOTE | 2021-11-16 12:35 | PC.CHAP ---
Pastoral Care Encounter/Spiritual Assessment Type of Contact [] Declined crown and bridge dental lab technician visit [] Patient/Family/Request visit [] Outpatient visit [] Follow-up visit [] Physician referral [] Code/Alert [x] Routine visit [] Staff referral [] Actively dying [] Patient sleeping [x] Family support [] [] Out of room [] Palliative care [] [] Receiving care in room [] Pre-surgical visit [] Trauma [] Long length of stay [x] ICU visit [x] Other: vent Relational/Emotional Strength [] Patient feels connected with others/family/visitors/staff [] Distress [] Loneliness/isolation [] Abandonment Spirituality of Patient [] Person of Leonora [] Attends Jehovah'S Witness of their Leonora [] Believes in Prayer [] Reads Bible or Jehovah'S Witness materials [] There are Spiritual issues to be addressed Proofer Apprentice Interventions [x] Prayer [] Active listening [] Non-anxious presence [] Spiritual/emotional support [] Crisis/trauma care [] Spiritual counseling [] Bereavement support [] Provided bereavement packet [] Provided Bible/devotional materials [] Provided toy/stuffed animal, coloring book to patient or family member [] Provided Communion [] Anointing/[place] [] Salvation [x] Completed spiritual assessment [] Other: Impact on Illness or Injury [] Angry [] Fearful [] Anxious [] Often cries [] Exhaustion [] Unable to work [] Unable to attend taoist [] Unable to walk/stand [] Unable to read [] Unable to drive [] Unable to eat/drink [] Unable to sleep [] Unable to be with family [] Patient intubated [] Other: Summary Time spent with patient
--- NOTE | 2021-11-16 13:24 | PC.NURSE ---
PT HAS HAD AN UNEVENTFUL SHIFT THIS FAR. DR. GUERIN, DR. EARLY, DR LOERA ALL IN TO SEE PT THIS MORNING AND TALK WITH PTS . DR GUERIN PLANNING TO DO BEDSIDE BRONCHOSCOPY WITH PERMISSION OF PTS . VITAL SIGNS HAVE REMAINED STABLE FOR THIS NURSE THUS FAR. CONTINUING TO MONITOR PT.
--- NOTE | 2021-11-16 13:43 | PC.NURSE ---
DR GUERIN, RT KVNG, THIS NURSE, CHARGE NURSE GLORIA, NURSE SHEILA, AND LIS CRUZ ALL AT BEDSIDE. DR GUERIN PREPARING TO DO BRONCHOSCOPY. TIME OUT AT 1345. DR GUERIN STARTING BRONCHOSCOPY. VITAL SIGNS ARE ALL WNL. PT SEEMS TO BE TOLERATING PROCEDURE WELL. 1351 PROCEDURE COMPLETED. VITAL SIGNS STILL WNL. WILL CONTINUE TO MONITOR PT.
--- NOTE | 2021-11-16 14:12 | PC.RESP ---
bedside bronch one sample from LL SENT TO LAB
--- NOTE | 2021-11-16 15:45 | P.PN_ITS ---
Subjective Subjective: -Overnight patient had a sudden episode of desaturation requiring 100% FiO2 from 35%-chest x-ray revealed a left lower lobe atelectasis-after suctioning with saline installation-mucous plugs were retracted and the saturations improved and FiO2 down to 40%. -Decreased Chest x-ray still showing left lower lobe atelectasis -Currently patient is on fentanyl 50 MCG-no meaningful responses yet-we will taper down sedation as feasible and continue with awakening trials -He had EEG with no seizure activity; -Had a bronchoscopic evaluation today afternoon-diffuse erythematous mucosa bilaterally with thick mucus secretions lower lobe subsegments-suction and samples sent for BAL cultures -Other labs and imaging reviewed Medications: Reviewed: Yes Vitals/I&O/Wt Last Vital Signs Temp 99.4 F 11/16/21 14:00 Pulse 81 11/16/21 14:00 Resp 15 11/16/21 14:00 BP 160/76 11/16/21 14:00 Pulse Ox 100 11/16/21 14:00 O2 Del Method 11/16/21 14:00 O2 Flow Rate 35 11/15/21 23:20 FiO2 40 11/16/21 12:43 11/16/21 11/16/21 11/16/21 06:59 14:59 22:59 Intake Total 300 / 2761.171 364.292 / 364.292 Output Total 350 / 925 Balance -50 / 1836.171 364.292 / 364.292 Physical Exam Narrative: PHYSICAL EXAM: General: lying in bed, sedated and intubated. HEENT:NCAT, pinpoint pupils, Neck: Supple Lungs: Bibasilar coarse crackles Heart: s1/s2, RRR Abd: soft, NT, ND, BS + Normoactive Extremities: No edema EXPERIMENTAL DISPLAY BUILDER: sedated and limited EXPERIMENTAL DISPLAY BUILDER exam possible. SKIN: no rash Urinary Catheter Management: Phan: Cath Placed During This Visit: yes Reason for Continuing Indwelling Catheter: Accurate Measurement of Urinary Outpu t in Critically Ill Patients Urinary Catheter Date of Insertion: 11/13/21 Urinary Catheter Time of Insertion: 12:00 Data : 11/16/21 04:25 11/16/21 04:25 Other Labs: Radiology Impressions Chest/Abdomen/Pelvis CT 11/13/21 12:32 IMPRESSION: 1. Negative for pulmonary embolism. 2. Bilateral pneumonia. 3. Endotracheal tube and NG tube is present 4. Negative for right heart strain IMPRESSION: No acute findings. Schmorl's node inferior endplate L3. NG tube is in the stomach or remote bone There is osteopenia and osteoarthritis of the spine Venous Duplex 11/13/21 17:20 IMPRESSION: No evidence of deep vein thrombosis. Head CT 11/15/21 04:00 IMPRESSION: 1. No acute intracranial hemorrhage or mass effect. 2. No definite acute infarct by CT, see above discussion. 3. Other findings discussed above. KUB X-Ray 11/15/21 22:03 IMPRESSION: No acute findings. Chest X-Ray 11/15/21 23:13 IMPRESSION: 1. Endotracheal tube tip over the mid trachea, 4 cm proximal to the joel. 2. Slight decreased left basilar opacity with possible slight increased aeration of the left lung. 3. Probable continued significant residual left lower lung field atelectasis and/or infiltrate and/or effusion with shift of the heart to the left. Laboratory Results WBC 4.8 10^3/uL (4.0-10.0) 11/16/21 04:25 RBC 3.13 10^6/uL (4.1-5.3) L 11/16/21 04:25 Hgb 10.4 g/dL (11.7-16.6) L 11/16/21 04:25 Hct 30.2 % (42.0-52.0) L 11/16/21 04:25 MCV 96.5 fl (80-94) H 11/16/21 04:25 MCH 33.2 pg (28.0-34.0) 11/16/21 04:25 MCHC 34.4 g/dL (30.0-36.0) 11/16/21 04:25 RDW 13.3 % (12.1-15.1) 11/16/21 04:25 Plt Count 68 10^3/cmm (130-400) L 11/16/21 04:25 MPV 11.6 fL (7.4-10.4) H 11/16/21 04:25 Neut % (Auto) 87.0 % 11/16/21 04:25 Lymph % (Auto) 6.7 % 11/16/21 04:25 Steele % (Auto) 5.5 % 11/16/21 04:25 Eos % (Auto) 0.0 % 11/16/21 04:25 Baso % (Auto) 0.0 % 11/16/21 04:25 Neut # (Auto) 4.13 10^3/uL (1.8-7.7) 11/16/21 04:25 Lymph # (Auto) 0.3 10^3/uL (0.8-4.8) L 11/16/21 04:25 Steele # (Auto) 0.3 10^3/uL (0.2-0.9) 11/16/21 04:25 Eos # (Auto) 0.0 10^3/uL (0.0-0.8) 11/16/21 04:25 Baso # (Auto) 0.0 10^3/uL (0.0-0.1) 11/16/21 04:25 Nucleated RBC % (auto) 0 % 11/16/21 04:25 Nucleated RBCs # 0.0 /100WBC 11/16/21 04:25 PT 18.30 SECONDS (12.1-14.9) H 11/13/21 18:50 INR 1.49 (0.8-1.2) H 11/13/21 18:50 APTT 31.2 SECONDS (23.9-36.7) 11/13/21 18:50 Fibrinogen 189 mg/dL (174-498) 11/13/21 18:50 Fibrin Degrad Products Pos, >=40 ug/mL (NEG) H 11/13/21 18:50 D-Dimer >= 20.00 ug/mIFEU (0-0.59) H 11/13/21 18:50 Specimen Type Arterial 11/16/21 04:00 Sample Site Radial, right 11/16/21 04:00 ABG pH 7.48 (7.35-7.45) H 11/16/21 04:00 ABG pCO2 28.9 mmHg (35-45) L 11/16/21 04:00 ABG pO2 68.8 mmHg (80.0-100.0) L 11/16/21 04:00 ABG HCO3 21.6 mmol/L (22-26) L 11/16/21 04:00 ABG O2 Saturation > 100.0 11/13/21 11:20 ABG Base Excess -1.2 mmol/L (-2.0-2.0) 11/16/21 04:00 Dylan Test Pos 11/16/21 04:00 A-a O2 Gradient 33.1 mmHg (5-10) H 11/13/21 11:20 Hematocrit 32.2 % (42-52) L 11/16/21 04:00 Hgb O2 Saturation 98.1 % (95-100) 11/13/21 11:20 Carboxyhemoglobin 1.6 %THgb (0.4-20.1) 11/13/21 11:20 Methemoglobin 0.7 % (0.4-1.5) 11/13/21 11:20 Total Hemoglobin 14.4 g/dL (14-18) 11/13/21 11:20 Sodium 139.0 mmol/L (131-143) 11/13/21 11:20 Potassium 4.3 mmol/L (3.5-5.0) 11/13/21 11:20 Glucose 277.0 mg/dL (70-115) H 11/13/21 11:20 Ionized Calcium 1.1 mmol/L (1.1-1.4) 11/13/21 11:20 O2 Delivery Device Vent 11/16/21 04:00 FiO2 40.0 % 11/16/21 04:00 Tidal Volume 0.50 11/16/21 04:00 PEEP 6.0 cmH20 11/15/21 22:05 Nursing Home Administrator ID [email or web address] 11/16/21 04:00 Sodium 137 mmol/L (136-145) 11/16/21 04:25 Potassium 3.9 mmol/L (3.5-5.1) 11/16/21 04:25 Chloride 97 mmol/L (98-107) L 11/16/21 04:25 Carbon Dioxide 24 mmol/L (22-29) 11/16/21 04:25 Anion Gap 19.9 (5-19) H 11/16/21 04:25 BUN 68 mg/dL (8-23) H 11/16/21 04:25 Creatinine 3.4 mg/dL (0.7-1.2) H 11/16/21 04:25 GFR Calculation Not Reportable 11/16/21 04:25 Glucose 148 mg/dL (65-115) H 11/16/21 04:25 POC Glucose 209 mg/dL (70-110) H 11/16/21 16:56 Estimat Average Glucose 97 11/15/21 14:30 Hemoglobin A1c 5.0 % (4.0-6.0) 11/15/21 14:30 Calculated Osmolality 307 mOsm/kg (285-295) H 11/16/21 04:25 Lactic Acid 7.8 mmol/L (0.5-2.2) H* 11/13/21 11:26 Lactic Acid (Sepsis) 3.0 mmol/L (0.5-2.2) H 11/13/21 14:20 Lactate 2.4 mmol/L (0.5-2.2) H 11/16/21 04:25 Calcium 7.4 mg/dL (8.5-10.5) L 11/16/21 04:25 Phosphorus 4.4 mg/dL (2.5-4.5) 11/14/21 03:32 Magnesium 2.0 mg/dL (1.7-2.3) 11/16/21 04:25 Total Bilirubin 0.8 mg/dL (0.15-1.2) 11/16/21 04:25 AST 104 U/L (0-40) H 11/16/21 04:25 ALT 43 U/L (0-41) H 11/16/21 04:25 Alkaline Phosphatase 55 U/L (40-130) 11/16/21 04:25 Troponin T Gen 5 ng/L 413 ng/L (0-15) H* 11/15/21 22:26 Troponin T Baseline 145 ng/L (0-15) H* 11/13/21 11:26 Troponin T 120 Minute 435.3 ng/L (0-15) H 11/13/21 14:20 Delta Troponin T 290.3 ABS# (0-10) H* 11/13/21 14:20 Troponin T Hi Sens 6Hr 1079 ng/L (0-15) H 11/13/21 18:50 Troponin T Hi Sens 6Hr Delta 934 ng/L (0-12) H* 11/13/21 18:50 C-Reactive Protein 64.6 mg/L (0.0-4.9) H 11/15/21 22:26 NT-Pro-B Natriuret Pep 2643 pg/mL (0-125) H 11/13/21 11:26 Total Protein 4.3 g/dL (6.6-8.7) L 11/16/21 04:25 Albumin 3.0 g/dL (3.5-5.2) L 11/16/21 04:25 Globulin 1.3 g/dL (1.3-4.6) 11/16/21 04:25 Procalcitonin 3.62 ng/mL (0-0.5) H 11/15/21 22:26 TSH 7.76 uIU/mL (0.27-4.20) H 11/13/21 11:26 Free T4 0.79 ng/dL (0.82-1.77) L 11/13/21 11: Prolactin 43.07 ng/mL (4.0-15.2) H 11/14/21 18:28 Urine Color Yellow (Yellow) 11/13/21 14:15 Urine Appearance Cloudy (CLEAR) 11/13/21 14:15 Urine pH 6 (5-7) 11/13/21 14:15 Ur Specific Sabael 1.015 (1.005-1.030) 11/13/21 14:15 Urine Protein 3+ (Negative) H 11/13/21 14:15 Urine Glucose (UA) Norm (Normal) 11/13/21 14:15 Urine Ketones 1+ (Negative) H 11/13/21 14:15 Urine Blood 3+ (Negative) H 11/13/21 14:15 Urine Nitrate Negative (Negative) 11/13/21 14:15 Urine Bilirubin Neg (Negative) 11/13/21 14:15 Urine Urobilinogen Norm mg/dL (Negative) 11/13/21 14:15 Ur Leukocyte Esterase Negative (Negative) 11/13/21 14:15 Urine RBC 25-40 /hpf (0-2) H 11/13/21 14:15 Urine WBC 10-15 /hpf (0-5) H 11/13/21 14:15 Ur Eosinophil Smear 0 (0-0) 11/15/21 14:30 Ur Squamous Epith Cells 5-10 /hpf (0-5) H 11/13/21 14:15 Amorphous Sediment 2+ /hpf 11/13/21 14:15 Urine Bacteria 3+ /hpf (NONE) H 11/13/21 14:15 Urine Sperm 1+ /hpf 11/13/21 14:15 Urine Eosinophils No eosinophils seen 11/15/21 14:30 Ur Random Microalbumin 8 ug/dL (0-20) 11/15/21 14:30 Ur Random Sodium 26 mmol/L 11/15/21 14:30 Ur Random Potassium 60 mmol/L 11/15/21 14:30 Ur Random Chloride 32 mmol/L 11/15/21 14:30 Urine Creatinine 98 mg/dL (39-259) 11/15/21 14:30 Urine Creatinine 99 mg/dL (39-259) 11/15/21 14:30 Microalb/Creat Ratio 81 mg/dL (0-20) H 11/15/21 14:30 Vancomycin Trough 20.1 ug/mL (10-15) H 11/14/21 14:45 Salicylates < 0.3 mg/dL (3-10) L 11/13/21 11:26 Acetaminophen < 5.0 ug/mL (10-30) L 11/13/21 11:26 Ethyl Alcohol < 10 mg/dL (0-10) 11/13/21 11:26 Coronavirus 229E (PCR) Not detected (NOT DETECT) 11/13/21 20:45 SARS-CoV-2 (PCR) Not detected (NOT DETECT) 11/13/21 20:45 Micro: Microbiology 11/15/21 10:10 Gram Stain - Final Sputum - Endotracheal Tube Aspirate Sputum Culture - Preliminary A&P Assessment and plan (1) Cardiac arrest: Status: Acute (2) Acute alteration in mental status: Status: Acute (3) Abnormal transaminases: Status: Acute (4) Metabolic acidosis: Status: Acute (5) Thrombocytopenia: Status: Acute (6) Mucus plug in respiratory tract: Status: Acute Plan #S/p cardiac arrest-no obvious cause -Suspect cardiac arrhythmia - given his history of alcohol induced CHF-diagnosed in 2009 as per -Initial thyroid profile showed TSH 7.76 and free T4 0.79- reported that patient never complained of fatigue, constipation, he never saw her PCP since 2009 -Echocardiogram on admission reported abnormal diastolic function-normal LV size and systolic function -Initial EKG on admission showed atrial fibrillation with aberrant conduction normal PVCs-which changed to sinus rhythm with first-degree AV block -Monitor electrolytes correct accordingly - #Altered mental status-suspect hypoxic encephalopathy-ROSC achieved 25 minutes after cardiac arrest #Evidence of multiple twitching as per hospitalist -sedated on fentanyl and off propofol, Versed and Nimbex -CT head 11/15/2021 did not show any acute intracranial hemorrhage or mass- effect; EEG 11/15/2021-did not show any seizures -Plan is to taper down fentanyl -Keppra 500 Mg twice daily for seizure prophylaxis -Recommended to obtain EEG #Acute respiratory failure secondary to cardiac arrest #CT evidence of bilateral upper lobes and posterior lower lobe consolidations- suspicious for pneumonia -CT chest did not show any evidence of PE or pneumothorax -Currently mechanically ventilated with CMV 550/ 40%/PEEP 8;-ABG 7.4 11/22/67 -We will taper down FiO2 and once patient is awake we will continue with breathing trials -MRSA nares negative-yesterday's endotracheal cultures were growing gram- positive cocci-I will continue vancomycin and cefepime until final cultures result -Urine Legionella antigen, urine bacterial antigens were all negative -S/p bronchoscopy today-revealed diffusely erythematous endobronchial mucosa; thick mucus secretions in left lower lobe which were suctioned and sent for BAL cultures #Episodes of bradycardia-currently heart rate has normalized #NSTEMI -Telemetry evidence of type II block and currently in sinus rhythm;-Received a dose of atropine today morning -Currently off pressors maintaining good blood pressure -Troponin 145> 435>1079; EKG did not show any ST elevations -Echocardiogram on admission reported abnormal diastolic function-normal LV size and systolic function -patient on aspirin, atorvastatin 80; held Lovenox due to thrombocytopenia -Monitor electrolytes and correct accordingly -Cardiology is on board #Deranged LFTs-possibly from hypoperfusion during cardiac arrest -Patient has history of alcoholic cirrhosis-but he quit in year 2009 -Monitor LFTs ##SCOTT-suspect secondary to hypoperfusion-prerenal -Electrolytes within normal limits K3.9, bicarb 24 -Good urine output; last 24 hours 525 mL and net + 1.8 L;-Currently on Lasix 40 Mg daily -Monitor electrolytes, renal parameters #Sugars moderately controlled #TSH 7.7, low as 84-suspect hypothyroidism -Currently on IV levothyroxine 50 MCG daily #Thrombocytopenia -Suspect [id number] for HIT panel -Monitor platelets ICU CHECKLIST: Problem list updated Verbal orders reviewed and signed Analgesia: Fentanyl Glycemic Control: N/A Nutrition:NPO Restraint Renewal (within 24 hrs): Yes Ulcer Prophylaxis: PPI Chemical Thromboprophylaxis: Held due to thrombocytopenia Mechanical Thromboprophylaxis:SCDS Need for Central line: NA Need for Phan catheter: for UOP Monitoring CODE: DNR/DNI Family: updated Critical Care Time (No Overlap): 50 min This patient has a high probability of sudden, clinically significant deterioration, which requires the highest level of physician preparedness to intervene urgently. I managed/supervised life or organ supporting interventions that required frequent physician assessment. I devoted my full attention in the ICU to the direct care of this patient for the period of time indicated above. Time I spent with family or surrogate(s) is included only if the patient was incapable of providing necessary information or participating in decision making. Time devoted to teaching and to any procedures I billed separately is not included. Services Provided: Telemetry review Mechanical Ventilation Hemodynamic interpretation, assessment and management Review and interpretation of CXR Review and interpretation of lab values Review and interpretation of microbiologic data and culture results Review of medications and administration Review and interpretation of Nutrition requirements and management Discussion of management with other consultants and services Clinical update to family members Attestations Medical Necessity Statement*: Continue awakening trial until then patient needs mechanical ventilatory support for airway protection and close ICU monitoring Critical Care Time: The high probability of a clinically significant, sudden or life threatening deterioration of the patient's [neurological, respiratory, hematologic, renal, endocrine] system(s) required my full and direct attention, intervention and personal management. The critical care time is as shown. This time is in addition to time spent performing any reported procedures but includes the following: [x] Data and vital sign review and interpretation [x] Patient assessment, examination and intervention [x] Documentation [x] Medication orders and management Critical Care Time (min): 50 Coding Level of Care Code Established Pt Acute Case Manager Specialist for Rosamari[place] Fwd Patient Type Established History Comprehensive Exam Comprehensive Medical Decision Making High Complexity Diagnoses Cardiac arrest I46.9 Acute alteration in mental status R41.82 Abnormal transaminases R74.8 Metabolic acidosis E87.2 Thrombocytopenia D69.6 Mucus plug in respiratory tract T17.998A Time Spent (min) 50
--- NOTE | 2021-11-16 15:46 | P.PCN_ITS ---
Procedure/Consent Time out: Time Out Performed: Yes Consent: Consent for Procedure: Consent obtained from other (indicate), Risks & Benefits reviewed and Agrees to proceed with procedure Procedure Narrative: Procedure: Flexible bronchoscopy with airway inspection, airway clearance of secretions and obtaining bronchoalveolar lavage sample Pre-Operative Diagnosis: Pneumonia Post-Operative Diagnosis: Same Indication: Persistent left lower lobe atelectasis with shift of the heart to the left Anesthesia: Patient already on fentanyl gtt. titrated to achieve adequate sedation and given propofol 10 Mg IV push Pre-procedure Evaluation: Patient was evaluated clinically and ancillary testing reviewed. The risk of having active MTB infection is very low in my clinical judgement. ASA: Follow-up Malampati score: unable to evaluate due to presence of endotracheal tube Consent: Cons[facility] were [facility] and placed in the chart Procedure Details: Time out was performed by the procedure team and nursing staff. Vent support maintained on Fio2 100. The bronchoscope was introduced through the ETT. A bronchoscopic airway exam was performed to evaluate the visible tracheobronchial tree to the segmental level. Summary of Significant Findings: -Bronchoscope passed through ET tube, 6 ml 1% lidocaine instilled into the trachea, both right and left main bronchus. Distal trachea and main joel visualized which were sharp and normal. Then the scope was passed through the right bronchial tree was assessed to include the right mainstem bronchus, RBI, and RUL/RML/RLL bronchi to the segmental and subsegmental levels. No active bleeding noted. Mucosa appeared diffusely erythematous. Then the scope was moved to left bronchial tree and assessed left mainstem bronchus, MICHAEL, Lingula, and LLL bronchi to the segmental and subsegmental level. No active bleeding noted. Mucosa appeared diffusely erythematous. Thick mucoid secretions noted in the left lower lobe subsegments which were suctioned right away. BAL obtained from left lower lobe the bronchoscope was then removed and the procedure terminated. Estimated Blood Loss: None Specimens: Bronchoalveolar lavage was taken from left lower lobe and sent for microbiology cultures. Complications:None; patient tolerated the procedure well. Disposition: Patient remains critically ill, intubated and stays in ICU Carlyle Anna [facility] Pulmonary critical Care Medicine [facility] Acute Procedures Epistaxis Control: Time out performed: Yes
[2021-11-16 16:59] LABS: Glucose Point of Care 209 mg/dL (70-110)
[2021-11-16] MEDS: cefepime 1,000 MG in sodium chloride 0.9% (plus) 50 ML 100 MG IV (17:02)
--- NOTE | 2021-11-16 18:40 | PC.NURSE ---
PT HAS CONTINUED TO HAVE AN UNEVENTFUL SHIFT. PT IS STILL ON FENTANYL. CONTINUING TO TRY AND TITRATE THIS DOWN PER MD ORDER AND PROTOCOL. PTS VITALS ARE CONTINUING TO REMAIN WNL. PT DOES NOT APPEAR TO BE IN ANY DISCOMFORT. CONTINUE TO MONITOR.
[2021-11-16 21:34] LABS: Glucose Point of Care 219 mg/dL (70-110)
[2021-11-16] MEDS: atorvastatin 40 mg Tablet 80 MG PO (22:27)
[2021-11-16] MEDS: insulin glargine 100 units/1 mL 10 UNIT SUBCUT (22:28)
[2021-11-16] MEDS: propofol 1,000 MG/100 ML INJ 6.4 MG IV (23:57)
[2021-11-17] VITALS (38 sets, daily range): BP systolic 114–167; BP diastolic 58–99; PULSE 62–90; RESP 14–30; TEMP 36.6–36.9; O2SAT 91–100
[2021-11-17] MEDS: acetylcysteine 200 mg/mL SDV 4 mL 100 MG INHALATION ×4 (03:18→20:06)
[2021-11-17] MEDS: ipratropium-albuterol 3 mL Neb INHALATION ×4 (03:18→20:06)
[2021-11-17 04:57] LABS: ABG PCO2 36.3 mmHg (35-45); ABG PH Result 7.39 (7.35-7.45); Base Excess ABG -2.6 mmol/L (-2.0-2.0); Blood Gas Allen Test Pos; Blood Gas Operator Identificat JB; Blood Gas Sample Site Radial, right; Blood Gas Sample Type Arterial; HCO3 ABG 21.9 mmol/L (22-26); Oxygen Device VENT; PO2 ABG 73.1 mmHg (80.0-100.0)
[2021-11-17] MEDS: sodium chloride 3.5% neb 4 mL Neb INHALATION ×2 (07:36→20:06)
--- NOTE | 2021-11-17 07:55 | CT_ITS ---
WS: [id number] CT HEAD TECHNIQUE: Noncontrast CT of the head obtained from the skullbase to the vertex. CLINICAL INFORMATION: ANOXIC COMPARISON: November 15, 2021 DLP: 1110.[address] scans at [facility] use at least one of these dose optimization techniques: automated e xposure control; mA and/or kV adjustment per patient size (includes targeted exams where dose is matc hed to clinical indication); or iterative reconstruction. FINDINGS: No evidence of intracranial hemorrhage. No hydrocephalus. Suggestion of subtle diffuse loss of acosta-w beverly differentiation compared to November 13, 2021. Recommend correlation with history of anoxic injury . This is better appreciated in the posterior parietal and occipital lobes. Subtle effacement of the overlying sulci in these areas. Acosta-white differentiation in the frontal lobes, basal ganglia, and i nternal capsules appears better preserved. No significant mass effect or midline shift. Ventricular system remains patent. Basilar cisterns are normal. LEFT sphenoid sinusitis. Mastoid air cells are well aerated. RIGHT parietal scalp edema likel y dependent. No other significant findings. CT/CT head wo con* [id number] IMPRESSION: 1. Diffuse subtle loss of acosta-white differentiation more prominent in the pos terior parietal and occipital lobes. This appears to have developed compared to November 13, 2021. Recommend continued surveillance to assess for change. 2. No intracranial hemorrhage or hydrocephalus. 3. Ventricular system and basal cisterns remain patent.
[2021-11-17 08:25] LABS: Hematocrit 30.5 % (42.0-52.0); Hemoglobin 10.8 g/dL (11.7-16.6); Lymphocytes # 0.2 10^3/uL (0.8-4.8); Lymphocytes % 2.3 %; Mean Corpuscular HGB Conc 35.4 g/dL (30.0-36.0); Mean Corpuscular Hemoglobin 33.8 pg (28.0-34.0); Mean Corpuscular Volume 95.3 fl (80-94); Mean Platelet Volume 10.9 fL (7.4-10.4); Monocytes # 0.4 10^3/uL (0.2-0.9); Monocytes % 5.4 %; Neutrophils % 91.3 %; Nucleated Red Blood Cells % 0 %; Platelet Count 80 10^3/cmm (130-400); Red Cell Distribution Width 13.2 % (12.1-15.1); White Blood Count 6.9 10^3/uL (4.0-10.0)
[2021-11-17] MEDS: pantoprazole 40 mg SDV IVP (08:36)
[2021-11-17] MEDS: FUROsemide 10 mg/mL SDV 4mL 40 MG IVP (08:47)
[2021-11-17] MEDS: levothyroxine 100 mcg SDV 50 MCG IVP (08:47)
[2021-11-17] MEDS: propofol 1,000 MG/100 ML INJ 6.4 MG IV ×2 (10:23→23:05)
--- NOTE | 2021-11-17 12:40 | P.PN_ITS ---
Subjective Subjective: Patient is getting oliguric BMP is pending Platelets are stable Patient does go into intermittent second-degree AV block Last night when we turned off his fentanyl patient started having seizure-like episodes hence propofol was very added This morning no pupillary reflex, gag reflex absent Please note that he is currently on propofol 15 CT head has been requested I will touch base with Dr. Rashid Case discussed with Dr. Anna who will see this patient after his clinic hours Currently patient is on FiO2 40% PEEP 8 Vitals/I&O/Wt Last Vital Signs Temp 98.4 F 11/17/21 12:00 Pulse 73 11/17/21 12:00 Resp 23 H 11/17/21 12:00 BP 137/75 11/17/21 12:00 Pulse Ox 92 11/17/21 12:00 O2 Del Method 11/17/21 12:00 O2 Flow Rate 35 11/15/21 23:20 FiO2 40 11/17/21 11:22 11/16/21 11/17/21 11/17/21 22:59 06:59 14:59 Intake Total 50.167 / 414.459 105 / 519.459 296.273 / 296.273 Output Total 400 / 400 Balance -349.833 / 14.459 105 / 119.459 296.273 / 296.273 Physical Exam Narrative: Patient is intubated Sedated with propofol No pupillary changes No gag reflex today Abnormal diaphragm muscle movement Fluid overloaded Positive fluid balance Edema of legs and extremities Assisted bilateral breath sounds, no rhonchi or crackles Normal bowel sounds Urinary Catheter Management: Phan: Cath Placed During This Visit: yes Reason for Continuing Indwelling Catheter: Other Urinary Catheter Date of Insertion: 11/13/21 Urinary Catheter Time of Insertion: 12:00 Data : 11/17/21 08:10 11/16/21 04:25 Micro: Microbiology 11/15/21 10:10 Gram Stain - Final Sputum - Endotracheal Tube Aspirate Sputum Culture - Preliminary A&P Assessment and plan (1) Thrombocytopenia: Status: Acute (2) Mucus plug in respiratory tract: Status: Acute (3) ATN (acute tubular necrosis): Status: Acute (4) PEA (Pulseless electrical activity): Status: Acute (5) Cardiac arrest: Status: Acute (6) Acute alteration in mental status: Status: Acute (7) Leukocytosis: Status: Acute (8) Acute non-ST elevation myocardial infarction (NSTEMI): Status: Acute (9) Abnormal transaminases: Status: Acute (10) Elevated TSH: Status: Acute Plan Status post cardiac arrest On mechanical ventilator, intubated and sedated Hypothermic TTM was not able to be initiated because of lack of rectal probe however normothermia goal has been maintained throughout his hospitalization, blood glucose has been monitored, Roughly 7 to 10 minutes before EMS arrived, it took 10 to 15 minutes to achieve ROSC Patient was showing myoclonus, abnormal diaphragmatic movement on Nimbex and 3 sedatives, yesterday 11/16 when we turned off fentanyl he started showing m yoclonus again hence site auditor put him on propofol He has been getting Keppra from day 1 after loading dose No gag reflex Pupils are not reactive Abnormal diaphragmatic movement CT head without contrast requested today I requested Dr. Rashid to assist us in neuro prognostication Mucous plug Status post bronchoscopy by Dr. 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 Hypoxia related to pulm edema and pneumonia Currently on broad-spectrum antibiotics and Lasix Prognosis is poor Dr. Rashid and Dr. Anna will see him after the clinic hours today is at the bedside, very receptive, she does have good insight regarding her 's medical condition and poor prognosis Second-degree intermittent AV block Cardiology did not recommend angiogram or any surgical intervention No significant hypotensive episodes Cardiology recommended monitoring for now Attestations Medical Necessity Statement*: Poor prognosis, continue ICU management Time Spent in Patient Care: 40 Coding Level of Care Code Acute Research & Analytics Manager for Chg Fwd Diagnoses Thrombocytopenia D69.6 Mucus plug in respiratory tract T17.998A ATN (acute tubular necrosis) N17.0 PEA (Pulseless electrical activity) I46.9 Cardiac arrest I46.9 Acute alteration in mental status R41.82 Leukocytosis D72.829 Acute non-ST elevation myocardial infarction (NSTEMI) I21.4 Abnormal transaminases R74.8 Elevated TSH R79.89
--- NOTE | 2021-11-17 12:44 | P.PN_ITS ---
Subjective Subjective: Patient seen at bedside today and spoke to at bedside and Overall appeared clinically worsening neurological status -Overnight when sedation was turned off patient had seizure-like activity and has to be placed on fentanyl drip again -Repeat CT head today showed diffuse loss of lambert-white differentiation more prominent in the posterior parietal and occipital lobes which is new compared to November 13, 2021 -Brainstem reflexes are absent and overall very poor prognosis -Neurology is consulted for prognostication and will continue goals of care discussion with family Medications: Reviewed: Yes Vitals/I&O/Wt Last Vital Signs Temp 98.4 F 11/17/21 12:00 Pulse 73 11/17/21 12:00 Resp 23 H 11/17/21 12:00 BP 137/75 11/17/21 12:00 Pulse Ox 92 11/17/21 12:00 O2 Del Method 11/17/21 12:00 O2 Flow Rate 35 11/15/21 23:20 FiO2 40 11/17/21 11:22 11/16/21 11/17/21 11/17/21 22:59 06:59 14:59 Intake Total 50.167 / 414.459 105 / 519.459 296.273 / 296.273 Output Total 400 / 400 Balance -349.833 / 14.459 105 / 119.459 296.273 / 296.273 Physical Exam Narrative: PHYSICAL EXAM: General: lying in bed, sedated and intubated. HEENT:NCAT, dilated pupils dilated pupils Neck: Supple Lungs: Clear to auscultation Heart: s1/s2, RRR Abd: soft, NT, ND, BS + Normoactive Extremities: No edema, myoclonic jerks noted SUPERVISOR RECEIVING AND PROCESSING: sedated and limited SUPERVISOR RECEIVING AND PROCESSING exam possible. SKIN: no rash Urinary Catheter Management: Phan: Cath Placed During This Visit: yes Reason for Continuing Indwelling Catheter: Other Urinary Catheter Date of Insertion: 11/13/21 Urinary Catheter Time of Insertion: 12:00 Data : 11/17/21 08:10 11/17/21 08:10 Other Labs: Radiology Impressions Chest/Abdomen/Pelvis CT 11/13/21 12:32 IMPRESSION: 1. Negative for pulmonary embolism. 2. Bilateral pneumonia. 3. Endotracheal tube and NG tube is present 4. Negative for right heart strain IMPRESSION: No acute findings. Schmorl's node inferior endplate L3. NG tube is in the stomach or remote bone There is osteopenia and osteoarthritis of the spine Venous Duplex 11/13/21 17:20 IMPRESSION: No evidence of deep vein thrombosis. KUB X-Ray 11/15/21 22:03 IMPRESSION: No acute findings. Chest X-Ray 11/15/21 23:13 IMPRESSION: 1. Endotracheal tube tip over the mid trachea, 4 cm proximal to the joel. 2. Slight decreased left basilar opacity with possible slight increased aeration of the left lung. 3. Probable continued significant residual left lower lung field atelectasis and/or infiltrate and/or effusion with shift of the heart to the left. Head CT 11/17/21 07:55 IMPRESSION: 1. Diffuse subtle loss of lambert-white differentiation more prominent in the posterior parietal and occipital lobes. This appears to have developed compared to November 13, 2021. Recommend continued surveillance to assess for change. 2. No intracranial hemorrhage or hydrocephalus. 3. Ventricular system and basal cisterns remain patent. Laboratory Results WBC 6.9 10^3/uL (4.0-10.0) 11/17/21 08:10 RBC 3.20 10^6/uL (4.1-5.3) L 11/17/21 08:10 Hgb 10.8 g/dL (11.7-16.6) L 11/17/21 08:10 Hct 30.5 % (42.0-52.0) L 11/17/21 08:10 MCV 95.3 fl (80-94) H 11/17/21 08:10 MCH 33.8 pg (28.0-34.0) 11/17/21 08:10 MCHC 35.4 g/dL (30.0-36.0) 11/17/21 08:10 RDW 13.2 % (12.1-15.1) 11/17/21 08:10 Plt Count 80 10^3/cmm (130-400) L 11/17/21 08:10 MPV 10.9 fL (7.4-10.4) H 11/17/21 08:10 Neut % (Auto) 91.3 % 11/17/21 08:10 Lymph % (Auto) 2.3 % 11/17/21 08:10 Cedar % (Auto) 5.4 % 11/17/21 08:10 Eos % (Auto) 0.0 % 11/17/21 08:10 Baso % (Auto) 0.0 % 11/17/21 08:10 Neut # (Auto) 6.30 10^3/uL (1.8-7.7) 11/17/21 08:10 Lymph # (Auto) 0.2 10^3/uL (0.8-4.8) L 11/17/21 08:10 Cedar # (Auto) 0.4 10^3/uL (0.2-0.9) 11/17/21 08:10 Eos # (Auto) 0.0 10^3/uL (0.0-0.8) 11/17/21 08:10 Baso # (Auto) 0.0 10^3/uL (0.0-0.1) 11/17/21 08:10 Nucleated RBC % (auto) 0 % 11/17/21 08:10 Nucleated RBCs # 0.0 /100WBC 11/17/21 08:10 PT 18.30 SECONDS (12.1-14.9) H 11/13/21 18:50 INR 1.49 (0.8-1.2) H 11/13/21 18:50 APTT 31.2 SECONDS (23.9-36.7) 11/13/21 18:50 Fibrinogen 189 mg/dL (174-498) 11/13/21 18:50 Fibrin Degrad Products Pos, >=40 ug/mL (NEG) H 11/13/21 18:50 D-Dimer >= 20.00 ug/mIFEU (0-0.59) H 11/13/21 18:50 Specimen Type Arterial 11/17/21 04:44 Sample Site Radial, right 11/17/21 04:44 ABG pH 7.39 (7.35-7.45) 11/17/21 04:44 ABG pCO2 36.3 mmHg (35-45) 11/17/21 04:44 ABG pO2 73.1 mmHg (80.0-100.0) L 11/17/21 04:44 ABG HCO3 21.9 mmol/L (22-26) L 11/17/21 04:44 ABG O2 Saturation > 100.0 11/13/21 11:20 ABG Base Excess -2.6 mmol/L (-2.0-2.0) L 11/17/21 04:44 Dylan Test Pos 11/17/21 04:44 A-a O2 Gradient 33.1 mmHg (5-10) H 11/13/21 11:20 Hematocrit 42.0 % (42-52) 11/17/21 04:44 Hgb O2 Saturation 98.1 % (95-100) 11/13/21 11:20 Carboxyhemoglobin 1.6 %THgb (0.4-20.1) 11/13/21 11:20 Methemoglobin 0.7 % (0.4-1.5) 11/13/21 11:20 Total Hemoglobin 14.4 g/dL (14-18) 11/13/21 11:20 Sodium 139.0 mmol/L (131-143) 11/13/21 11:20 Potassium 4.3 mmol/L (3.5-5.0) 11/13/21 11:20 Glucose 277.0 mg/dL (70-115) H 11/13/21 11:20 Ionized Calcium 1.1 mmol/L (1.1-1.4) 11/13/21 11:20 O2 Delivery Device Vent 11/17/21 04:44 FiO2 40.0 % 11/17/21 04:44 Tidal Volume 0.50 11/17/21 04:44 PEEP 8.0 cmH20 11/17/21 04:44 Agricultural Commodities Inspector ID Denny 11/17/21 04:44 Sodium 140 mmol/L (136-145) 11/17/21 08:10 Potassium 4.1 mmol/L (3.5-5.1) 11/17/21 08:10 Chloride 98 mmol/L (98-107) 11/17/21 08:10 Carbon Dioxide 21 mmol/L (22-29) L 11/17/21 08:10 Anion Gap 25.1 (5-19) H 11/17/21 08:10 BUN 95 mg/dL (8-23) H* 11/17/21 08:10 Creatinine 4.5 mg/dL (0.7-1.2) H 11/17/21 08:10 GFR Calculation Not Reportable 11/17/21 08:10 Glucose 171 mg/dL (65-115) H 11/17/21 08:10 POC Glucose 219 mg/dL (70-110) H 11/16/21 19:56 Estimat Average Glucose 97 11/15/21 14:30 Hemoglobin A1c 5.0 % (4.0-6.0) 11/15/21 14:30 Calculated Osmolality 323 mOsm/kg (285-295) H 11/17/21 08:10 Lactic Acid 7.8 mmol/L (0.5-2.2) H* 11/13/21 11:26 Lactic Acid (Sepsis) 3.0 mmol/L (0.5-2.2) H 11/13/21 14:20 Lactate 2.4 mmol/L (0.5-2.2) H 11/16/21 04:25 Calcium 7.0 mg/dL (8.5-10.5) L 11/17/21 08:10 Phosphorus 4.4 mg/dL (2.5-4.5) 11/14/21 03:32 Magnesium 2.1 mg/dL (1.7-2.3) 11/17/21 08:10 Total Bilirubin 0.7 mg/dL (0.15-1.2) 11/17/21 08:10 AST 126 U/L (0-40) H 11/17/21 08:10 ALT 63 U/L (0-41) H 11/17/21 08:10 Alkaline Phosphatase 59 U/L (40-130) 11/17/21 08:10 Troponin T Gen 5 ng/L 413 ng/L (0-15) H* 11/15/21 22:26 Troponin T Baseline 145 ng/L (0-15) H* 11/13/21 11:26 Troponin T 120 Minute 435.3 ng/L (0-15) H 11/13/21 14:20 Delta Troponin T 290.3 ABS# (0-10) H* 11/13/21 14:20 Troponin T Hi Sens 6Hr 1079 ng/L (0-15) H 11/13/21 18:50 Troponin T Hi Sens 6Hr Delta 934 ng/L (0-12) H* 11/13/21 18:50 C-Reactive Protein 64.6 mg/L (0.0-4.9) H 11/15/21 22:26 NT-Pro-B Natriuret Pep 2643 pg/mL (0-125) H 11/13/21 11:26 Total Protein 5.3 g/dL (6.6-8.7) L 11/17/21 08:10 Albumin 3.2 g/dL (3.5-5.2) L 11/17/21 08:10 Globulin 2.1 g/dL (1.3-4.6) 11/17/21 08:10 Procalcitonin 3.62 ng/mL (0-0.5) H 11/15/21 22:26 TSH 7.76 uIU/mL (0.27-4.20) H 11/13/21 11:26 Free T4 0.79 ng/dL (0.82-1.77) L 11/13/21 11:26 Prolactin 43.07 ng/mL (4.0-15.2) H 11/14/21 18:28 Urine Color Yellow (Yellow) 11/13/21 14:15 Urine Appearance Cloudy (CLEAR) 11/13/21 14:15 Urine pH 6 (5-7) 11/13/21 14:15 Ur Specific [place] 1.015 (1.005-1.030) 11/13/21 14:15 Urine Protein 3+ (Negative) H 11/13/21 14:15 Urine Glucose (UA) Norm (Normal) 11/13/21 14:15 Urine Ketones 1+ (Negative) H 11/13/21 14:15 Urine Blood 3+ (Negative) H 11/13/21 14:15 Urine Nitrate Negative (Negative) 11/13/21 14:15 Urine Bilirubin Neg (Negative) 11/13/21 14:15 Urine Urobilinogen Norm mg/dL (Negative) 11/13/21 14:15 Ur Leukocyte Esterase Negative (Negative) 11/13/21 14:15 Urine RBC 25-40 /hpf (0-2) H 11/13/21 14:15 Urine WBC 10-15 /hpf (0-5) H 11/13/21 14:15 Ur Eosinophil Smear 0 (0-0) 11/15/21 14:30 Ur Squamous Epith Cells 5-10 /hpf (0-5) H 11/13/21 14:15 Amorphous Sediment 2+ /hpf 11/13/21 14:15 Urine Bacteria 3+ /hpf (NONE) H 11/13/21 14:15 Urine Sperm 1+ /hpf 11/13/21 14:15 Urine Eosinophils No eosinophils seen 11/15/21 14:30 Ur Random Microalbumin 8 ug/dL (0-20) 11/15/21 14:30 Ur Random Sodium 26 mmol/L 11/15/21 14:30 Ur Random Potassium 60 mmol/L 11/15/21 14:30 Ur Random Chloride 32 mmol/L 11/15/21 14:30 Urine Creatinine 98 mg/dL (39-259) 11/15/21 14:30 Urine Creatinine 99 mg/dL (39-259) 11/15/21 14:30 Microalb/Creat Ratio 81 mg/dL (0-20) H 11/15/21 14:30 Vancomycin Trough 20.1 ug/mL (10-15) H 11/14/21 14:45 Salicylates < 0.3 mg/dL (3-10) L 11/13/21 11:26 Acetaminophen < 5.0 ug/mL (10-30) L 11/13/21 11:26 Ethyl Alcohol < 10 mg/dL (0-10) 11/13/21 11:26 Coronavirus 229E (PCR) Not detected (NOT DETECT) 11/13/21 20:45 SARS-CoV-2 (PCR) Not detected (NOT DETECT) 11/13/21 20:45 Micro: Microbiology 11/15/21 10:10 Gram Stain - Final Sputum - Endotracheal Tube Aspirate Sputum Culture - Preliminary A&P Assessment and plan (1) Anoxic encephalopathy: Status: Acute (2) Cardiac arrest: Status: Acute (3) Acute alteration in mental status: Status: Acute (4) Abnormal transaminases: Status: Acute (5) Metabolic acidosis: Status: Acute Plan #S/p cardiac arrest-no obvious cause -Suspect cardiac arrhythmia - given his history of alcohol induced CHF-diagnosed in 2010 as per -Initial thyroid profile showed TSH 7.76 and free T4 0.79- reported that patient never complained of fatigue, constipation, he never saw her PCP since 2009 -Echocardiogram on admission reported abnormal diastolic function-normal LV size and systolic function -Initial EKG on admission showed atrial fibrillation with aberrant conduction normal PVCs-which changed to sinus rhythm with first-degree AV block -Monitor electrolytes correct accordingly - #Altered mental status-suspect anoxic encephalopathy-ROSC achieved 25 minutes after cardiac arrest #Evidence of myoclonus and absent reflexes -CT head today revealed diffuse loss of lambert-white differentiation which is new compared to previous CTs -Overall extremely poor prognosis with absent reflexes -Neurology was consulted for prognostication and will continue goals of care discussion with at bedside #Acute respiratory failure secondary to cardiac arrest #CT evidence of bilateral upper lobes and posterior lower lobe consolidations- suspicious for pneumonia -CT chest did not show any evidence of PE or pneumothorax -Currently mechanically ventilated with CMV 550/ 40%/PEEP 8 -MRSA nares negative-yesterday's endotracheal cultures were growing gram-po sitive cocci-currently on vancomycin and cefepime until final cultures result -Urine Legionella antigen, urine bacterial antigens were all negative -S/p bronchoscopy -revealed diffusely erythematous endobronchial mucosa; thick mucus secretions in left lower lobe which were suctioned and sent for BAL cultures #Episodes of bradycardia-currently heart rate has normalized #NSTEMI -Telemetry evidence of type II block and currently in sinus rhythm; -Currently off pressors maintaining good blood pressure -Troponin 145> 435>1079; EKG did not show any ST elevations -Echocardiogram on admission reported abnormal diastolic function-normal LV size and systolic function -patient on aspirin, atorvastatin 80; held Lovenox due to thrombocytopenia #Deranged LFTs-possibly from hypoperfusion during cardiac arrest -Patient has history of alcoholic cirrhosis-but he quit in year 2009 -Monitor LFTs ##SCOTT-suspect secondary to hypoperfusion-prerenal -Electrolytes within normal limits K3.9, bicarb 24 -Good urine output; last 24 hours 525 mL and net + 1.8 L;-Currently on Lasix 40 Mg daily -Monitor electrolytes, renal parameters #Sugars moderately controlled #TSH 7.7, low as 84-suspect hypothyroidism -Currently on IV levothyroxine 50 MCG daily #Thrombocytopenia -Suspect [id number] for HIT panel -Monitor platelets Overall extremely poor prognosis given loss of reflexes and ongoing myoclonus- suspect anoxic brain injury and goals of care leading towards comfort care ICU CHECKLIST: Problem list updated Verbal orders reviewed and signed Analgesia: Fentanyl Glycemic Control: N/A Nutrition:NPO Restraint Renewal (within 24 hrs): Yes Ulcer Prophylaxis: PPI Chemical Thromboprophylaxis: Held due to thrombocytopenia Mechanical Thromboprophylaxis:SCDS Need for Central line: NA Need for Phan catheter: for UOP Monitoring CODE: DNR/DNI Family: updated Critical Care Time (No Overlap): 45 min This patient has a high probability of sudden, clinically significant deterioration, which requires the highest level of physician preparedness to intervene urgently. I managed/supervised life or organ supporting interventions that required frequent physician assessment. I devoted my full attention in the ICU to the direct care of this patient for the period of time indicated above. Time I spent with family or surrogate(s) is included only if the patient was incapable of providing necessary information or participating in decision making. Time devoted to teaching and to any procedures I billed separately is not included. Services Provided: Telemetry review Mechanical Ventilation Hemodynamic interpretation, assessment and management Review and interpretation of CXR Review and interpretation of lab values Review and interpretation of microbiologic data and culture results Review of medications and administration Review and interpretation of Nutrition requirements and management Discussion of management with other consultants and services Clinical update to family members Attestations Medical Necessity Statement*: Probably comfort care after neuro prognostication Time Spent in Patient Care: Greater than 35 minutes (>than 50% of time spent in counselling and/or direct pt care on unit) . Critical Care Time: The high probability of a clinically significant, sudden or life threatening deterioration of the patient's [neurological, respiratory, hematologic, renal, endocrine] system(s) required my full and direct attention, intervention and personal management. The critical care time is as shown. This time is in addition to time spent performing any reported procedures but includes the following: [x] Data and vital sign review and interpretation [x] Patient assessment, examination and intervention [x] Documentation [x] Medication orders and management Critical Care Time (min): 45 Coding Level of Care Code Established Pt Acute Blood And Plasma Laboratory Assistant for Chg Fwd Patient Type Established History Comprehensive Exam Comprehensive Medical Decision Making Moderate Complexity Diagnoses Anoxic encephalopathy G93.1 Cardiac arrest I46.9 Acute alteration in mental status R41.82 Abnormal transaminases R74.8 Metabolic acidosis E87.2 Time Spent (min) 45
--- NOTE | 2021-11-17 12:55 | PC.CHAP ---
Pastoral Care Encounter/Spiritual Assessment Type of Contact [] Declined medical voucher clerk visit [] Patient/Family/Request visit [] Outpatient visit [] Follow-up visit [] Physician referral [] Code/Alert [x] Routine visit [] Staff referral [] Actively dying [] Patient sleeping [x] Family support [] [] Out of room [] Palliative care [] [] Receiving care in room [] Pre-surgical visit [] Trauma [] Long length of stay [x] ICU visit [x] Other: vent... friend and family present Relational/Emotional Strength [] Patient feels connected with others/family/visitors/staff [] Distress [] Loneliness/isolation [] Abandonment Spirituality of Patient [] Person of Leonora [] Attends Anabaptism of their Leonora [] Believes in Prayer [] Reads Bible or Faith materials [] There are Spiritual issues to be addressed Card Player Interventions [x] Prayer [] Active listening [] Non-anxious presence [] Spiritual/emotional support [] Crisis/trauma care [] Spiritual counseling [] Bereavement support [] Provided bereavement packet [] Provided Bible/devotional materials [] Provided toy/stuffed animal, coloring book to patient or family member [] Provided Communion [] Anointing/[place] [] Salvation [x] Completed spiritual assessment [] Other: Impact on Illness or Injury [] Angry [] Fearful [] Anxious [] Often cries [] Exhaustion [] Unable to work [] Unable to attend zoroastrian [] Unable to walk/stand [] Unable to read [] Unable to drive [] Unable to eat/drink [] Unable to sleep [] Unable to be with family [] Patient intubated [] Other: Summary Time spent with patient
[2021-11-17] MEDS: vancomycin 1,500 MG/300 ML PIGGYBACK 166.67 MG IV (13:51)
[2021-11-17 14:58] LABS: Alanine Aminotransferase 63 U/L (0-41); Albumin Level 3.2 g/dL (3.5-5.2); Alkaline Phosphatase 59 U/L (40-130); Anion Gap 25.1 (5-19); Aspartate Amino Transferase 126 U/L (0-40); Carbon Dioxide 21 mmol/L (22-29); Chloride 98 mmol/L (98-107); Globulin 2.1 g/dL (1.3-4.6); Glucose 171 mg/dL (65-115); Magnesium 2.1 mg/dL (1.7-2.3); Osmolality Calculated 323 mOsm/kg (285-295); Potassium 4.1 mmol/L (3.5-5.1); Sodium 140 mmol/L (136-145); Total Bilirubin 0.7 mg/dL (0.15-1.2); Total Protein 5.3 g/dL (6.6-8.7)
[2021-11-17 15:01] LABS: Blood Urea Nitrogen 95 mg/dL (8-23)
--- NOTE | 2021-11-17 18:16 | PM.MISC ---
Miscellaneous Note Note: Had another family meeting along with Dr. Rashid was present at the bedside Brainstem reflexes are absent Patient was off sedation Has extensive myoclonus Tremulous activity is decided to terminally extubate him around 7:30 AM on 11/18 For now we will keep him on sedatives to decrease his tremulous activity
--- NOTE | 2021-11-17 18:19 | PM.CONSULT ---
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 He was quiet that morning, quieter than usual, and told his he was going outside to alw. She heard the motor on the Gator and heard him start to pull out then the motor was running but the Gator was not moving. She found him slumped to the side and unresponsive. [facility] arrived and found the patient having CPR by first responders. He was in PEA and went into ventricular fibrillation. He had more than 10 minutes, possibly 20 minutes before a rhythm was recovered. His estimates that it was probably 20 minutes from the time that he went down. She went back and reviewed videos from the yard security and found that he was moving forward, had convulsive activity and then fell to the side. He was in excellent health although at some time he was diagnosed with cirrhosis of the liver and cardiac failure. Since arriving here he has not had any sign of brain activity. His echocardiogram showed a large left atrium but his ejection fraction was 60% and there was no regional wall abnormality. Because the patient had convulsive activity prior to arrival he was started on Keppra IV here. Polymyoclonus was noted on his exam early on and that has become more vigorous during the hospitalization. His EEG showed no meaningful cortical activity, diffuse bifrontal artifact with muscle myoclonus. These look more like muscle activity than brain activity. Has been kept on anesthetic to prevent the myoclonus which has been upsetting. When he is weaned from sedatives he has no brain activity. Medications/Allergies Home Medications Medication Instructions Recorded Confirmed Last Taken Type Cinsulin 1 cap PO DAILY 11/13/21 11/13/21 11/12/21 History ascorbic acid (vitamin C) 500 mg 500 mg PO DAILY 11/13/21 11/13/21 11/12/21 History tablet (Vitamin C) cholecalciferol (vitamin D3) 25 25 mcg PO BID 11/13/21 11/13/21 11/12/21 History mcg (1,000 unit) capsule (Vitamin D3) cranberry 400 mg capsule 400 mg PO DAILY 11/13/21 11/13/21 11/12/21 History garlic 300 mg capsule 300 mg PO DAILY 11/13/21 11/13/21 11/12/21 History glucosamine sulf dipot 1 cap PO DAILY 11/13/21 11/13/21 11/12/21 History chlr,msm,chond 550 mg-C 30 mg-seb 1 mg capsule (Glucosamine Chondroitin) grape seed extract 50 mg capsule 50 mg PO DAILY 11/13/21 11/13/21 11/12/21 History (Grape Seed) ibuprofen 200 mg capsule 600 mg PO TID PRN Pain 11/13/21 11/13/21 Unknown History milk thistle 150 mg capsule 150 mg PO DAILY 11/13/21 11/13/21 11/12/21 History multivitamin 1 tab PO DAILY 11/13/21 11/13/21 11/12/21 History turmeric 400 mg capsule 400 mg PO BID 11/13/21 11/13/21 11/12/21 History vitamin B complex 1 cap PO DAILY 11/13/21 11/13/21 11/12/21 History Allergies Allergy/AdvReac Type Severity Reaction Status Date / Time No Known Allergies Allergy Verified 11/13/21 12:27 Current Medications Generic Name Dose Route Start Last Admin Trade Name Freq PRN Reason Stop Dose Admin Acetylcysteine 100 mg 11/17/21 14:00 11/17/21 13:35 Acetylcysteine 200 Mg/Ml Sdv 4 Ml INHALATION 100 mg Q6H JOSE F Administration Albuterol/Ipratropium 3 ml 11/13/21 17:20 11/17/21 13:35 Ipratropium-Albuterol 3 Ml Neb INHALATION 3 ml Q6H PRN Administration SHORTNESS OF BREATH Aspirin 81 mg 11/14/21 09:00 11/15/21 09:29 Aspirin 81 Mg Ec Tablet PO 81 mg DAILY JOSE F Administration Atorvastatin Calcium 80 mg 11/13/21 21:00 11/16/21 22:27 Atorvastatin 40 Mg Tablet PO 80 mg BEDTIME JSOE F Administration Enoxaparin Sodium 100 mg 11/15/21 09:00 11/15/21 09:36 Enoxaparin 100 Mg/Ml Syringe SUBCUT 100 mg DAILY JOSE F Administration Furosemide 40 mg 11/17/21 09:00 11/17/21 08:47 Furosemide 10 Mg/Ml Sdv 4ml IVP 40 mg Q24H JOSE F Administration Propofol 1,000 mg in 100 mls @ 0 mls/hr 11/13/21 17:20 11/17/21 15:00 Diprivan IV 15 mcg/kg/min .Q0M JOSE F 9.59 mls/hr Titration Protocol Per Protocol Norepinephrine Bitartrate 4 mg 254 mls @ 0 mls/hr 11/13/21 18:00 11/15/21 10:34 / Dextrose IV Infused .Q0M PRN Titration if MAP <65mmhg Protocol Per Protocol Cisatracurium Besylate 100 mg/ 100 mls @ 0 mls/hr 11/13/21 22:45 11/15/21 08:37 Sodium Chloride IV 0 mcg/kg/min .Q0M JOSE F 0 mls/hr Titration Protocol Per Protocol Midazolam HCl 100 mg/ Sodium 100 mls @ 0 mls/hr 11/14/21 10:15 11/15/21 09:07 Chloride IV 0 mg/hr .Q0M JOSE F 0 mls/hr Titration Protocol Per Protocol Cefepime HCl 1,000 mg/ Sodium 50 mls @ 100 mls/hr 11/14/21 17:30 11/16/21 17:55 Chloride IV Infused Q24H JOSE F Infusion Protocol Vancomycin/PEG/NADA/Lysine/Water 1,500 mg in 300 mls @ 166.667 mls/hr 11/16/21 01:00 11/17/21 17:05 Vancocin IV Infused Q36H JOSE F Infusion Levetiracetam 500 mg/ Sodium 105 mls @ 420 mls/hr 11/16/21 10:00 11/17/21 11:29 Chloride IV Infused Q12H JOSE F Infusion Insulin Glargine 10 unit 11/15/21 21:00 11/16/21 22:28 Insulin Glargine 100 Units/1 Ml SUBCUT 10 unit BEDTIME JOSE F Administration Levothyroxine Sodium 50 mcg 11/15/21 09:00 11/17/21 08:47 Levothyroxine 100 Mcg Sdv IVP 50 mcg DAILY JOSE F Administration Methylprednisolone Sodium Succinate 30 mg 11/16/21 18:00 11/17/21 05:32 Methylprednisolone Sod Succ 40 Mg/Ml Inj IVP 30 mg Q12H JOSE F Administration Pantoprazole Sodium 40 mg 11/13/21 18:00 11/17/21 08:36 Pantoprazole 40 Mg Sdv IVP 40 mg BID JOSE F Administration Sodium Chloride 4 ml 11/16/21 08:00 11/17/21 07:36 Sodium Chloride 3.5% Neb 4 Ml Neb INHALATION 4 ml BID.RESPIRATORY JOSE F Administration PFSH Acute PFSH: Medical History Family history unknown Medical history unknown Surgical History Surgical history unknown Vitals/I&O/Wt Last Vital Signs Temp 98.1 F 11/17/21 16:00 Pulse 72 11/17/21 16:00 Resp 18 11/17/21 16:00 BP 155/82 11/17/21 16:00 Pulse Ox 93 11/17/21 16:00 O2 Del Method 11/17/21 16:00 O2 Flow Rate 35 11/15/21 23:20 FiO2 40 11/17/21 14:00 11/17/21 11/17/21 11/17/21 06:59 14:59 22:59 Intake Total 105 / 519.459 315.207 / 315.207 323.037 / 638.244 Balance 105 / 119.459 315.207 / 315.207 323.037 / 638.244 Physical Exam Narrative: He was sedated on the ventilator but sedation was discontinued on my arrival. He has myoclonic jerks that are irregular, facial and both upper extremities right more than left. Doll's eyes absent. Pupils midposition fixed. Corneal stimulation stimulates increased myoclonus in the jaw but not an appropriate eye closure response. Only the left corneals stimulation triggered myoclonus. Right corneal stimulation no response. Stimulation of the brow bilaterally negative. Nailbed stimulation has no significant effect. No withdrawal. No posturing. Reflexes absent throughout. Cardiac: S1 and S2 normal without murmur or gallop. Chest clear to auscultation Urinary Catheter Management: Phan: Cath Placed During This Visit: yes Reason for Continuing Indwelling Catheter: Other Urinary Catheter Date of Insertion: 11/13/21 Urinary Catheter Time of Insertion: 12:00 Data : 11/17/21 08:10 11/17/21 08:10 Micro: Microbiology 11/15/21 10:10 Gram Stain - Final Sputum - Endotracheal Tube Aspirate Sputum Culture - Final Staphylococcus aureus CT Head: My impression: I agree with Dr. Ahn Radiologist's impression: 1.? Diffuse subtle loss of lambert-white differentiation more prominent in the posterior parietal and occipital lobes. This appears to have developed compared to November 13, 2021. Recommend continued surveillance to assess for change. 2.? No intracranial hemorrhage or hydrocephalus. 3.? Ventricular system and basal cisterns remain patent. ? Dictated By: Bob Ahn MD Signed By: Bob Ahn MD Signed Date/Time: 11/17/21? A&P Assessment and plan (1) Anoxic encephalopathy: I have reviewed the patient's chart and his examination. He had trivial elevation of TSH not sufficient to have caused any of his problems. He had an acute episode of seizure-like activity with loss of responsiveness and cardiac arrest with PEA. He had prolonged period of anoxia. He had an acute non-ST elevation ND. This patient has not shown any sign of brain recovery 4 days after cardiac arrest. He has no positive sign of brain activity at this point and is close to qualifying for brain (he has a few agonal respirations). Myoclonus is not considered a sign of brain activity. His prognosis for meaningful recovery is nil. The patient's was at bedside during my exam and I explained my findings. The lack of corneal response, doll's eyes or response to pain implies a hopeless prognosis. Status: Acute (2) Acute non-ST elevation myocardial infarction (NSTEMI): Status: Acute Coding Level of Care Code Acute Manager Supply Chain Planning for [facility] Diagnoses Anoxic encephalopathy G93.1 Acute non-ST elevation myocardial infarction (NSTEMI) I21.4
--- NOTE | 2021-11-17 18:40 | PC.NURSE ---
SHIFT SUMMARY: PT HAS HAD AN UNEVENTFUL SHIFT. MULTIPLE DOCTORS HAVE BEEN IN TO SEE AND ASSESS PT WELL TALK TO THE PTS . PLAN TO TERMINALLY EXTUBATE HAVE BEEN MADE THIS EVENING. REQUESTS THAT WE WAIT TO DO THIS UNTIL TOMORROW AND REQUESTS THAT WE FOCUS ON KEEPING PT COMFORTABLE. PT IS CURRENTLY RESTING IN BED. HE LOOKS COMFORTABLE AND DOES NOT APPEAR TO BE IN ANY PAIN. VITAL SIGNS ARE WNL. PT STILL ON FENTANYL AND PROPOFOL PER ORDER AND PROTOCOL. WILL CONTINUE TO MONITOR.
--- NOTE | 2021-11-17 20:35 | PC.NURSE ---
MTS updated on family plan to terminally extubate patient on 11/18/21.
[2021-11-18] VITALS (36 sets, daily range): BP systolic 139–189; BP diastolic 67–95; PULSE 68–115; RESP 6–25; TEMP 36.6–37.7; O2SAT 83–97
[2021-11-18] MEDS: acetylcysteine 200 mg/mL SDV 4 mL 100 MG INHALATION (02:52)
[2021-11-18] MEDS: ipratropium-albuterol 3 mL Neb INHALATION (02:52)
--- NOTE | 2021-11-18 07:00 | PC.NURSE ---
Bedside report completed with Nany Talley RN
[2021-11-18] MEDS: midazolam 1 mg/mL INJ 2 mL 5 MG IVP (08:38)
[2021-11-18] MEDS: HYDROmorphone 1 mg/mL INJ 1 mL 2 MG IVP (08:45)
--- NOTE | 2021-11-18 08:54 | PC.NURSE ---
Addendum entered by Patti Ross RN 11/18/21 08:56: Witnesses wast of Fentanyl 31.6 ml. Original Note: Fentanyl gtt wasted 31.166 ml, see MAR for exact amount.. Witnessed by Zhou Ross RN
--- NOTE | 2021-11-18 09:44 | PM.PN ---
Subjective Subjective: and Dr. Rashid at the bedside Terminal extubation today Start comfort care Vitals/I&O/Wt Last Vital Signs Temp 100.3 F H 11/19/21 04:00 Pulse 84 11/19/21 06:00 Resp 7 L 11/19/21 06:00 BP 160/82 11/19/21 06:00 Pulse Ox 91 11/19/21 06:00 O2 Del Method 11/19/21 06:00 O2 Flow Rate 40 11/17/21 20:00 FiO2 40 11/18/21 08:45 11/18/21 11/19/21 11/19/21 22:59 06:59 14:59 Intake Total 0 / 132.781 Output Total 1075 / 1075 1850 / 2925 Balance -1075 / -942.219 -1850 / -2792.219 Weight last 48 hrs Weight 106.594 kg Weight 110.268 kg Physical Exam Narrative: Patient is experiencing tremors after sedation has been turned off No meaningful movement noted [place] breathing pattern. Abdomen soft Fluid overloaded Hemodynamically stable for now3 Respiratory rate dropping below 10 Urinary Catheter Management: Phan: Cath Placed During This Visit: yes Reason for Continuing Indwelling Catheter: Hospice/Comfort/Palliative Care Urinary Catheter Date of Insertion: 11/13/21 Urinary Catheter Time of Insertion: 12:00 Data : 11/17/21 08:10 11/17/21 08:10 Micro: Microbiology 11/13/21 12:16 Blood Culture - Final Blood NO GROWTH AFTER 5 DAYS 11/13/21 12:11 Blood Culture - Final Blood NO GROWTH AFTER 5 DAYS A&P Assessment and plan (1) Anoxic encephalopathy: Status: Acute Plan Terminal extubation Comfort care Dr. Rashid has evaluated him at the bedside, Attestations Medical Necessity Statement*: Comfort care Time Spent in Patient Care: 15 Coding Level of Care Code Acute Grinder Set Up Operator Internal for [facility] Diagnoses Anoxic encephalopathy G93.1
[2021-11-18] MEDS: morphine 10 mg/0.5 mL oral liq UD SUBLINGUAL ×4 (10:09→21:09)
[2021-11-18] MEDS: glycopyrrolate 0.2 mg/mL SDV 2 mL IV ×4 (10:09→23:39)
[2021-11-18] MEDS: midazolam 1 mg/mL INJ 2 mL 2 MG IVP ×8 (10:39→23:37)
--- NOTE | 2021-11-18 10:39 | P.PN_ITS ---
Vitals/I&O/Wt Last Vital Signs Temp 98.0 F 11/18/21 00:00 Pulse 76 11/18/21 06:00 Resp 14 11/18/21 08:45 BP 165/78 11/18/21 06:00 Pulse Ox 92 11/18/21 08:45 O2 Del Method 11/18/21 06:00 O2 Flow Rate 40 11/17/21 20:00 FiO2 40 11/18/21 08:00 11/17/21 11/18/21 11/18/21 22:59 06:59 14:59 Intake Total 396.316 / 711.523 25.92 / 737.443 132.781 / 132.781 Output Total 1100 / 1100 850 / 1950 Balance -703.684 / -388.477 -824.08 / -1212.557 132.781 / 132.781 Weight last 48 hrs Weight 243 lb 1.6 oz Physical Exam Narrative: He was sedated on the ventilator. He has myoclonic jerks that are irregular, facial and both upper extremities right more than left. Doll's eyes absent. Pupils midposition fixed. Corneal stimulation stimulates increased myoclonus in the jaw but not an appropriate eye closure response. Only the left corneals stimulation triggered myoclonus. Right corneal stimulation no response. Stimulation of the brow bilaterally negative. Nailbed stimulation has no significant effect. No withdrawal. No posturing. Reflexes absent throughout. Urinary Catheter Management: Phan: Cath Placed During This Visit: yes Reason for Continuing Indwelling Catheter: Accurate Measurement of Urinary Output in Critically Ill Patients Urinary Catheter Date of Insertion: 11/13/21 Urinary Catheter Time of Insertion: 12:00 Data : 11/17/21 08:10 11/17/21 08:10 Micro: Microbiology 11/15/21 10:10 Gram Stain - Final Sputum - Endotracheal Tube Aspirate Sputum Culture - Final Staphylococcus aureus A&P Assessment and plan (1) Anoxic encephalopathy: 71-year-old previously healthy gentleman who sustained a cardiac arrest that was unobserved. Although he was discovered by his who took immediate action, he suffered more than 20 minutes of anoxia before resuscitation. He has prof ound anoxic encephalopathy with diffuse polymyoclonus. He has multiorgan involvement with acute renal failure, non-ST HI, thrombocytopenia. He meets criteria for brain . His indicates that the patient would not have wished to consider organ donation and she is prepared to allow natural . I offered to be available if needed. Status: Acute Attestations Medical Necessity Statement*: Profound anoxic brain injury, resuscitation in the field. Coding Level of Care Code Acute Cooker Process Cheese for [facility] Diagnoses Anoxic encephalopathy G93.1
--- NOTE | 2021-11-18 11:29 | P.DES_ITS ---
Discharge Providers DDS Date of Admission: 11/13/21 17:20 Date Summary Completed: 11/18/21 Attending Provider at Admission: Gaby Carrillo MD Attending Provider at Discharge: MD GENA Pat Diagnoses Hospital Diagnoses (1) Anoxic encephalopathy: Reason for Visit Reason for Visit POST CODE Summary Summary Summary: Patient had malignant arrhythmia and cardiac arrest outside the hospital in the field, EMS intubated him and brought to the ER, ROSC was obtained after 15 to 20 minutes, hypothermia was not initiated, because of lack of rectal probe in the ICU, he was kept normothermic, he remained afebrile, glucose was kept under control, patient was kept intubated for about 5 days, he did not show any meaningful neurological recovery or changes, he kept showing convulsions, tremors and myoclonus, vertical eye movement, he was evaluated by lay out machine operator, neurologist and pulm/critical care consultants. Repeat CT head on 11/17 did show diffuse effacement of lambert and white matter, and her assessment is cardiac arrest was secondary to a malignant arrhythmia, he remained in vegetative state throughout his hospitalization Multiple family meetings were conducted on daily basis, was well receptive of the information, patient was terminally extubated on 11/18 Additional Data Advance directives?: No Discharge Plan Discharge Patient Disposition: Home Condition: Stable Prescriptions: No Action multivitamin Tablet 1 tab PO DAILY garlic 300 mg Capsule 300 mg PO DAILY ibuprofen 200 mg Capsule 600 mg PO TID PRN (Reason: Pain) milk thistle 150 mg Capsule 150 mg PO DAILY Rx Instructions: give with meal/snack Vitamin C 500 mg Tablet 500 mg PO DAILY cranberry 400 mg Capsule 400 mg PO DAILY Rx Instructions: administer with a meal Grape Seed 50 mg Capsule 50 mg PO DAILY Rx Instructions: give with food (meal/snack) B Complex Capsule 1 cap PO DAILY Vitamin D3 25 mcg (1,000 unit) Capsule 25 mcg PO BID turmeric 400 mg Capsule 400 mg PO BID Glucosamine Chondroitin 550-30-1 mg Capsule 1 cap PO DAILY Cinsulin 1 cap PO DAILY Patient Instructions: Opioid Safety Coding Level of Care Code Acute Bead Forming Machine Set Up Operator for [facility] Diagnoses Anoxic encephalopathy G93.1
--- NOTE | 2021-11-18 11:34 | PC.NURSE ---
Pt terminally extubated and OG removed at 0850, after dialudid and versed ademin. Atropine and Ropinol given for rattling. Versed given again for tremoring on the left. No needs at this time per family
[2021-11-18] MEDS: HYDROmorphone 1 mg/mL INJ 1 mL IVP ×5 (12:10→23:40)
--- NOTE | 2021-11-18 16:48 | PC.SOCIAL ---
IMM update IMM not updated with patient as comfort measures started.
--- NOTE | 2021-11-18 19:00 | PC.NURSE ---
Bedside report completed with Nany Talley RN.
--- NOTE | 2021-11-18 19:05 | PC.NURSE ---
Shift Note: Pt rested in bed throughout shift. Decision to terminally extubate made today. Pt extubated at 0850. Pt has had tremors on the right, Versed IVP helps. Roxinol, Atropine, Dilaudid also administered for comfort. Pt remains in sinus rhythm. Repositioning and oral care provided througout shift. with PVCs. Rattling lung sounds noted from door way, NO secretions to suction noted. Family remained at bedside until after 1400. No meaningful movement or responses noted this shift. Urien outout of 1075. Frequent safety and comfort rounds continue. Orders and/or nursing care completed as indicated. Patient monitored for response to intervention and treatment(s). Education provided includes Roxinol, Ropirinol, atropine, Dilaudid and versed, Plan of care and comfort measures. Patient s customer engagement representative verbalized understanding of comfort measures and plan of care, with new medications. Will continue to monitor.
[2021-11-19] VITALS (29 sets, daily range): BP systolic 160–230; BP diastolic 82–133; PULSE 79–118; RESP 7–22; TEMP 37.7–38.7; O2SAT 83–96
[2021-11-19] MEDS: midazolam 1 mg/mL INJ 2 mL 2 MG IVP ×8 (00:34→21:26)
[2021-11-19] MEDS: HYDROmorphone 1 mg/mL INJ 1 mL IVP ×4 (01:33→22:25)
[2021-11-19] MEDS: glycopyrrolate 0.2 mg/mL SDV 2 mL IV ×3 (03:05→21:26)
--- NOTE | 2021-11-19 06:41 | PC.NURSE ---
Notified Janelle, patients to notify that her 's respirations have started to decrease and and heart rate is decreasing. states that she will be up here to be with her soon.
--- NOTE | 2021-11-19 06:55 | PC.NURSE ---
Beside report completed with Nany Talley RN.
--- NOTE | 2021-11-19 09:00 | PM.PN ---
Subjective Subjective: And is on comfort care Blood pressure is high Respiratory rate 7, Vitals/I&O/Wt Last Vital Signs Temp 98.7 F 11/20/21 04:00 Pulse 95 11/20/21 10:00 Resp 10 L 11/20/21 10:00 BP 179/98 11/20/21 10:00 Pulse Ox 90 11/20/21 10:00 O2 Del Method 11/20/21 10:00 O2 Flow Rate 40 11/17/21 20:00 FiO2 40 11/18/21 08:45 11/19/21 11/20/21 11/20/21 22:59 06:59 14:59 Output Total 1999 1550 / 3550 Balance -1999 -1550 / -3550 Weight last 48 hrs Weight 102.965 kg Weight 106.594 kg Physical Exam Narrative: Skin showing mottling Apneic spells Systolic blood pressure 140s Breathing weight 7 No meaningful neurological recovery Tremors improved Urinary Catheter Management: Phan: Cath Placed During This Visit: yes Reason for Continuing Indwelling Catheter: Hospice/Comfort/Palliative Care Urinary Catheter Date of Insertion: 11/13/21 Urinary Catheter Time of Insertion: 12:00 Data : 11/17/21 08:10 11/17/21 08:10 A&P Assessment and plan (1) Anoxic encephalopathy: Status: Acute Plan On comfort care Attestations Medical Necessity Statement*: Continue management Coding Level of Care Code Acute Vp Software Engineering for [facility] Diagnoses Anoxic encephalopathy G93.1
--- NOTE | 2021-11-19 10:35 | PC.NURSE ---
Slight mottling noted on lower legs. , Janelle, remains at bedside.
--- NOTE | 2021-11-19 13:17 | PC.CHAP ---
Pastoral Care Encounter/Spiritual Assessment Type of Contact [] Declined nitro worker visit [] Patient/Family/Request visit [] Outpatient visit [] Follow-up visit [] Physician referral [] Code/Alert [x] Routine visit [] Staff referral [x] Actively dying [] Patient sleeping [] Family support [] [] Out of room [] Palliative care [] [] Receiving care in room [] Pre-surgical visit [] Trauma [] Long length of stay [] ICU visit [] Other: Relational/Emotional Strength [] Patient feels connected with others/family/visitors/staff [] Distress [] Loneliness/isolation [] Abandonment Spirituality of Patient [] Person of Leonora [] Attends Christian of their Leonora [] Believes in Prayer [] Reads Bible or Holiness materials [] There are Spiritual issues to be addressed Maintenance Manager Interventions x [] Prayer [] Active listening [] Non-anxious presence [] Spiritual/emotional support [] Crisis/trauma care [] Spiritual counseling [] Bereavement support [] Provided bereavement packet [] Provided Bible/devotional materials [] Provided toy/stuffed animal, coloring book to patient or family member [] Provided Communion [] Anointing/[place] [] Salvation [x] Completed spiritual assessment [] Other: Impact on Illness or Injury [] Angry [] Fearful [] Anxious [] Often cries [] Exhaustion [] Unable to work [] Unable to attend caodaism [] Unable to walk/stand [] Unable to read [] Unable to drive [] Unable to eat/drink [] Unable to sleep [] Unable to be with family [] Patient intubated [] Other: Summary Time spent with patient
[2021-11-19] MEDS: morphine 10 mg/0.5 mL oral liq UD SUBLINGUAL (14:56)
--- NOTE | 2021-11-19 18:40 | PC.NURSE ---
Addendum entered by Samira Lawson RN 11/19/21 19:32: , Janelle verbalized understanding to continued comfort care and plan of care. Original Note: Shift Note Pt remains on comfort care. NO meaningful responses still noted. He has been mostly sinus rhythm on monitor, PVC frequency has increased. Respirations even but chest wall movement irregular. He has had some tremors, versed administered, it helps. He has only needed drops for rattling once this shift. Mottling has started on lower extremities but very slight. has been at bedside off and on today , very attentive. Frequent safety and comfort rounds continue. Orders and/or nursing care completed as indicated. Patient monitored for response to intervention and treatment(s). Education provided includes[]. Patient and/or sales representative girls' apparel [ResponseToTeaching]. Will continue to monitor.
--- NOTE | 2021-11-19 19:00 | PC.NURSE ---
Bedside report completed with FRANCI Barrios,
--- NOTE | 2021-11-19 21:33 | PC.NURSE ---
Patient having presence of tremors to right side, administered midazolam per MAR. Patient also having increased respiratory secretions. Robinul and atropine oral drops administered. Current VS HR 125, RR 15, BP 213/123(153).
--- NOTE | 2021-11-19 22:15 | PC.NURSE ---
Recheck BP 230/133(165) HR 120, RR 15, administered morphine per MAR for apparent pain.
[2021-11-20] VITALS (27 sets, daily range): BP systolic 166–228; BP diastolic 94–129; PULSE 83–133; RESP 8–26; TEMP 37.1–37.8; O2SAT 61–92
[2021-11-20] MEDS: midazolam 1 mg/mL INJ 2 mL 2 MG IVP ×11 (01:04→22:32)
[2021-11-20] MEDS: HYDROmorphone 1 mg/mL INJ 1 mL IVP ×5 (04:37→23:40)
--- NOTE | 2021-11-20 07:06 | PC.NURSE ---
bedside report received from Nany Talley RN
--- NOTE | 2021-11-20 14:01 | PM.MISC ---
Miscellaneous Note Note: Patient is on comfort care Apneic spells Skin mottling at the bedside Son is planning to be at the bedside today ICU nurse will give Em [place] opioids before son is in the room on the request of Mrs. Tesfaye, Mrs. Tesfaye is worried that son might get emotionally unstable if he observes his father unstable condition
--- NOTE | 2021-11-20 19:12 | PC.NURSE ---
bedside report given to Denis KOROMA
[2021-11-20] MEDS: glycopyrrolate 0.2 mg/mL SDV 2 mL IV (19:57)
--- NOTE | 2021-11-20 20:00 | PC.NURSE ---
Patient noted to be having significant tremors, administered medications per MAR. Respirations are irregular. Performed oral care and NT suctioning to alleviate respiratory distress. Very little response to suctioning, sputum is pink.
--- NOTE | 2021-11-20 21:34 | PC.NURSE ---
Patient having increased tremors, elevated HR, elevated BP. Contacted Dr. Faustin regarding current findings. Per discussion, will continue Versed pushes at this time.
[2021-11-21] VITALS (26 sets, daily range): BP systolic 138–176; BP diastolic 79–120; PULSE 108–151; RESP 10–33; TEMP 37.2; O2SAT 55–86
[2021-11-21] MEDS: HYDROmorphone 1 mg/mL INJ 1 mL IVP ×6 (04:15→21:20)
[2021-11-21] MEDS: midazolam 1 mg/mL INJ 2 mL 2 MG IVP ×18 (04:16→22:01)
[2021-11-21] MEDS: glycopyrrolate 0.2 mg/mL SDV 2 mL IV ×5 (04:16→21:08)
--- NOTE | 2021-11-21 07:00 | PC.NURSE ---
Bedside report completed with Priti Oliver RN
--- NOTE | 2021-11-21 08:00 | PC.NURSE ---
Assessment: Mottling has incresed since Monday. It is more prevalent on legs and now up to right hip.
[2021-11-21] MEDS: morphine 10 mg/0.5 mL oral liq UD SUBLINGUAL ×3 (11:29→17:03)
--- NOTE | 2021-11-21 13:47 | PM.PN ---
Subjective Subjective: No overnight events More mottling Respiratory rate 10-12, Patient is maintaining MAP 65 mmHg Vitals/I&O/Wt Last Vital Signs Temp 100.0 F H 11/20/21 20:00 Pulse 121 H 11/21/21 06:00 Resp 22 H 11/21/21 12:51 BP 170/97 11/21/21 06:00 Pulse Ox 79 L 11/21/21 12:51 O2 Del Method 11/20/21 20:00 O2 Flow Rate 40 11/17/21 20:00 FiO2 40 11/18/21 08:45 11/20/21 11/21/21 11/21/21 22:59 06:59 14:59 Output Total 1050 / 1050 1650 / 1650 Balance -1050 / -1050 -1650 / -1650 Weight last 48 hrs Weight 102.143 kg Weight 102.965 kg Physical Exam Narrative: No meaningful neurological recovery Myoclonus Vertical gaze Fluid overloaded Apneic spells Skin mottling Urinary Catheter Management: Phan: Cath Placed During This Visit: yes Reason for Continuing Indwelling Catheter: Other Urinary Catheter Date of Insertion: 11/13/21 Urinary Catheter Time of Insertion: 12:00 Data : 11/17/21 08:10 11/17/21 08:10 A&P Assessment and plan (1) Anoxic encephalopathy: Status: Acute Plan Patient had malignant arrhythmia and cardiac arrest outside the hospital in the field, EMS intubated him and brought to the ER, ROSC was obtained after 15 to 20 minutes, there was a delay of about 7 minutes before EMS arrived, EMS intubated him in the field, CT scan of the head at the time of admission did not show any acute pathological findings, hypothermia was not initiated, because of lack of rectal probe in the ICU, he was kept normothermic according to TTM protocol he remained afebrile, glucose was kept under control, patient was kept intubated for about 5 days, he did not show any meaningful neurological recovery, he kept showing convulsions, tremors and myoclonus, vertical eye movement, he was evaluated by wax blender, neurologist and pulm/critical care consultants. Repeat CT head on 11/17 did show diffuse effacement of lambert and white matter, and her assessment is cardiac arrest was secondary to a malignant arrhythmia, he remained in vegetative state throughout his hospitalization Multiple family meetings were conducted on daily basis, was well receptive of the information, patient was terminally extubated on 11/18 Since 11/18 he has been breathing below 12, blood pressure has been stable, skin showing a lot of mottling, no meaningful recovery, patient is in vegetative state Attestations Medical Necessity Statement*: On comfort care Time Spent in Patient Care: 10 Coding Level of Care Code Acute All Source Collection Manager for [facility] Diagnoses Anoxic encephalopathy G93.1
--- NOTE | 2021-11-21 19:20 | PC.NURSE ---
Bedside report completed with Priti Oliver RN and Krishnamurthy RN
--- NOTE | 2021-11-21 19:54 | PC.NURSE ---
Shift Note: Pt has had more tremors/ seizing activity as the day has progressed, He required much more versed this shift. rattle prominent. His heart rate has been above 130 for most of the shift with frequent PVCs. His O2 sats 55 to 89% this shift. He does ave a rash on truck . Mottling on lower extremities up to hip. His feet are very cold. , Janelle, has been very attentive. Urine output of 2150 noted. Frequent safety and comfort rounds continue. Orders and/or nursing care completed as indicated. Patient monitored for response to intervention and treatment(s). Education provided includes Progress, ongoing comfort care plan, continued medications. Patient's associate sales representative verbalized understanding of progress and ongoing comfort care plan with medications.. Will continue to monitor.
--- NOTE | 2021-11-21 22:34 | PC.NURSE ---
Patient 2210. 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 MTS contacted at [phone]. Awaiting called back from Cindi Garcia with [facility] for further instructions. Post mortem care performed. All lines removed.
--- NOTE | 2021-11-22 02:12 | PC.NURSE ---
Spoke with Mayra from [facility]. Patient has been released from them as well as [facility].
--- NOTE | 2021-11-22 19:43 | PM.DDS ---
Discharge Providers DDS Date of Admission: 11/13/21 17:20 Date Summary Completed: 11/22/21 Attending Provider at Admission: Gaby Carrillo MD Attending Provider at Discharge: MD GENA Pat Diagnoses Hospital Diagnoses (1) Anoxic encephalopathy: Reason for Visit Reason for Visit POST CODE Summary Date and Time of Date of : 11/21/21 Summary Summary: Patient had malignant arrhythmia and cardiac arrest outside the hospital in the field, EMS intubated him and brought to the ER, ROSC was obtained after 15 to 20 minutes, there was a delay of about 7 minutes before EMS arrived, EMS intubated him in the field, CT scan of the head at the time of admission did not show any acute pathological findings, hypothermia was not initiated, because of lack of rectal probe in the ICU, he was kept normothermic according to TTM protocol he remained afebrile, glucose was kept under control, patient was kept intubated for about 5 days, he did not show any meaningful neurological recovery, he kept showing convulsions, tremors and myoclonus, vertical eye movement, he was evaluated by applications specialist, neurologist and pulm/critical care consultants. ?Repeat CT head on 11/17 did show diffuse effacement of lambert and white matter, and her assessment is cardiac arrest was secondary to a malignant arrhythmia, he remained in vegetative state throughout his hospitalization Multiple family meetings were conducted on daily basis, was well receptive of the information, patient was terminally extubated on 11/18 Since 11/18 he has been breathing below 12, blood pressure has been stable, skin showing a lot of mottling, no meaningful recovery, patient is in vegetative state Patient 11/21 at 2211 Additional Data Advance directives?: No Discharge Plan Discharge Patient Disposition: Condition: Stable Probable Cause of Probable cause of : Cardiac arrest DS Attestations Time Spent in /Discharge Care*: less than 30 min Quality - AMI: AMI present?: No Quality - Stroke: CVA present?: No Quality - VTE: VTE present?: No Coding Level of Care Code Acute Cushion Cover Inspector for [facility] Fwd Diagnoses Anoxic encephalopathy G93.1
[2021-11-23 00:49] LABS: Heparin Induced Platelet AB NEGATIVE (NEGATIVE); Patient O.D 0.017
[2021-11-24 21:27] LABS: UFH High Dose, 100 IU/ML 0 % release; UFH Low Dose, 0.1 IU/ML 0 % release; UFH Low Dose, 0.5 IU/ML 0 % release; UFH SRA Result NEGATIVE (NEGATIVE)
== END 2021-11-21 22:11 | disposition expired ==
LOC: ER 12:50 → ICU 18:20
PROVIDERS: Family Medicine; Internal Medicine Pulmonary Disease; Admitting Provider Internal Medicine; Emergency Provider Emergency Medicine; Visit Provider Internal Medicine
DX: I46.9 Cardiac arrest, cause unspecified (principal); I21.4 Non-ST elevation (NSTEMI) myocardial infarction; E03.5 Myxedema coma; I50.31 Acute diastolic (congestive) heart failure; J18.9 Pneumonia, unspecified organism; J96.00 Acute respiratory failure, unspecified whether with hypoxia or hypercapnia; N17.0 Acute kidney failure with tubular necrosis; I42.9 Cardiomyopathy, unspecified; E87.2 Acidosis; G93.1 Anoxic brain damage, not elsewhere classified; J98.11 Atelectasis; T17.590A Other foreign object in bronchus causing asphyxiation, initial encounter; K70.30 Alcoholic cirrhosis of liver without ascites; F10.11 Alcohol abuse, in remission; I44.1 Atrioventricular block, second degree; E03.9 Hypothyroidism, unspecified; R25.1 Tremor, unspecified; Z66 Do not resuscitate; Z51.5 Encounter for palliative care; G25.3 Myoclonus; D69.6 Thrombocytopenia, unspecified; E83.51 Hypocalcemia; E87.5 Hyperkalemia; R56.9 Unspecified convulsions
CPT/HCPCS: 31622; 36415; 36416; 36600; 51702; 70450; 71045; 71275; 74018; 74177; 80048; 80051; 80053; 80202; 80307; 80503; 81001; 82044; 82330; 82436; 82570; 82803; 82805; 82962; 83036; 83605; 83735; 83880; 84100; 84133; 84145; 84146; 84300; 84439; 84443; 84484; 85025; 85362; 85378; 85384; 85610; 85730; 85999; 86140; 86403; 87040; 87070; 87077; 87086; 87186; 87205; 87449; 87635; 87641; 93005; 93010; 93306; 93970; 94002; 94003; 94640; 94799; 96372; 96374; 96375; 99291; C9113; J0461; J0610; J0692; J1170; J1650; J1815; J1940; J1953; J2250; J2270; J2543; J2704; J2920; J3010; J3370; J3490; J7030; J7050; J7608; Q9967